=== PATIENT | female | born 1970 | race Caucasian/White ===

== ENCOUNTER 2021-11-26 15:06 | Outpatient (CLI) | payer OTHER, SELFPAY ==
--- NOTE | 2021-11-26 15:00 | CRLHL7_ITS ---
For Patients: As a result of the Century Cures Act, medical imaging exams and procedure reports are released immediately into your electronic medical record. You may view this report before your referring provider. If you have questions, please contact your health care provider. BILATERAL SCREENING MAMMOGRAM WITH COMPUTER-AIDED DETECTION AND TOMOSYNTHESIS TECHNIQUE: CC and MLO views were obtained. These mammographic images have been obtained using full-field digital technique. These mammographic images were interpreted with the benefit of computer-aided detection. Breast Tomosynthesis was used in this interpretation. COMPARISON FILM: 10/18/20, 07/17/19, 12/24/17. FINDINGS: The breasts are heterogeneously dense, which may obscure small masses IMPRESSION: There is no radiographic evidence for malignancy. ASSESSMENT: BI-RADS Category 2: Benign RECOMMENDATION: Routine screening mammogram in 1 year. A lay language report of this examination will be provided to the patient. Lang Olivo M.D. Diagnostic Radiologist [email or web address] MAURI/Dictated by: Lang Olivo MD @ 11/27/2021 10:08:00 AM (Electronically Signed)
== END 2021-11-26 15:07 | disposition home or self-care (01) ==
LOC: MAMMO 15:07
PROVIDERS: PCP Family Medicine; Visit Provider Family Medicine
DX: Z12.31 Encounter for screening mammogram for malignant neoplasm of breast (principal); R92.2 Inconclusive mammogram
CPT/HCPCS: 77063; 77067

== ENCOUNTER 2023-01-29 13:54 | Outpatient (CLI) | payer OTHER, SELFPAY ==
--- NOTE | 2023-01-29 14:00 | CRLHL7_ITS ---
For Patients: As a result of the Century Cures Act, medical imaging exams and procedure reports are released immediately into your electronic medical record. You may view this report before your referring provider. If you have questions, please contact your health care provider. BILATERAL SCREENING MAMMOGRAM WITH COMPUTER-AIDED DETECTION AND TOMOSYNTHESIS TECHNIQUE: CC and MLO views were obtained. These mammographic images have been obtained using full-field digital technique. These mammographic images were interpreted with the benefit of computer-aided detection. Breast Tomosynthesis was used in this interpretation. COMPARISON FILM: 11/26/21, 10/18/20, 07/17/19. FINDINGS: There are scattered areas of fibroglandular density IMPRESSION: There is no radiographic evidence for malignancy. ASSESSMENT: BI-RADS Category 1: Negative RECOMMENDATION: Routine screening mammogram in 1 year. A lay language report of this examination will be provided to the patient. Lang Olivo M.D. Diagnostic Radiologist [email or web address] MAURI/Dictated by: Lang Olivo MD @ 02/02/2023 9:19:00 AM (Electronically Signed)
== END 2023-01-29 13:55 | disposition home or self-care (01) ==
LOC: MAMMO 13:55
DX: Z12.31 Encounter for screening mammogram for malignant neoplasm of breast (principal)
CPT/HCPCS: 77063; 77067

== ENCOUNTER 2023-02-09 07:36 | Outpatient (CLI) | payer OTHER, SELFPAY | END 2023-02-09 07:37 | disposition home or self-care (01) | PROVIDERS: Visit Provider Family Medicine | DX: Z00.00 Encounter for general adult medical examination without abnormal findings (principal); I10 Essential (primary) hypertension; Z11.59 Encounter for screening for other viral diseases; Z13.6 Encounter for screening for cardiovascular disorders; Z13.1 Encounter for screening for diabetes mellitus; Z11.3 Encounter for screening for infections with a predominantly sexual mode of transmission | CPT/HCPCS: 80053; 80061; 82043; 82570; 84156; 86803 ==

== ENCOUNTER 2023-03-08 08:00 | Day surgery (SDC) | payer OTHER, SELFPAY ==
--- NOTE | 2023-03-08 07:19 | CRLHL7_ITS ---
For Patients: As a result of the Century Cures Act, medical imaging exams and procedure reports are released immediately into your electronic medical record. You may view this report before your referring provider. If you have questions, please contact your health care provider. Indication: Surgery / Rt thigh melanoma III Technique: Grayscale and color Doppler ultrasound of the right inguinal soft tissues performed. Comparison: 05/12/2021 Findings: Normal morphologic lymph nodes within the right inguinal soft tissues noted with normal central fatty cait. No cortical thickening. Largest lymph node measures 2.1 x 0.4 x 0.7 cm. No abnormal vascularity. Impression: Normal right inguinal lymph nodes. No suspicious findings. No significant change. Dictated by Lang Olivo MD @ 03/08/2023 8:42:03 AM (Electronically Signed)
--- OUTSIDE RECORDS SUMMARY | 2023-03-08 08:03 | XMS_ITS | Clinical Summary ---
Author Name Unknown Organization [facility] Address [address] [place] [address] Care Team Providers Care Industrial Safety And Health Specialist Name Role Phone Lang Mohamud MD Primary Care Provider [phone] Source Comments You are receiving this document as you are listed as the primary care provider,follow-up provider, or the patient has been referred to you for consultation.This is in compliance with the Medicare andOhio[facility] EHR Incentive Program,which states Providers who transition their patient to another setting of careor provider of care or refers their patient to another provider of care shouldprovide summary care record for each transition of care or referral. [facility] Allerg[facility] No known active allergies Medications Medication Sig Dispensed Refills Start Date End Date Status atenolol (TENORMIN) 50 MG tabletIndications:Ess ential hypertension (HRC) Take 1 Tablet (50 mg) by mouth daily. 90 Tablet 3 10/16/2021 Active aluminum chloride (DRYSOL) 20 % external solutionIndications:G eneralized hyperhidrosis APPLY TOPICALLY 3 TIMES A WEEK NEEDED. 60 mL 4 10/16/2021 Active rizatriptan (MAXALT) 10 MG tablet Take 1 Tablet (10 mg) by mouth as needed for Headache. at onset of migraine. May repeat in 2 hr if needed up to 30mg in 24 hr & MAX use 5 days/month 30 Tablet 6 10/17/2021 Active clobetasol (TEMOVATE) 0.05 % ointment Apply under bandage to irritated spot on neck 15 g 1 02/16/2023 Active Active Problems Problem Noted Date Diagnosed Date Adenomatous polyp of colon 11/23/2018 Overview: Colonoscopy completed 11/2018. Repeat in 5 years (11/2023). FH: abdominal aortic aneurysm 03/18/2018 Overview: Follow up with US. 2016 last check, q5 years. 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 Essential tremor 04/07/2010 Overview: Essential and other specified forms of tremor (HRC) Essential hypertension 07/15/2002 Overview: Hypertension Migraine 07/15/2002 Overview: Migraine Without Aura Resolved Problems Problem Noted Date Diagnosed Date Resolved Date Hypertrophy of breast 09/27/20062012 Overview: Macromastia Encounters Date Type Department Care Team Description 02/16/2023 1:30 PM DUPLEX TRIMMER Office Visit [facility] [address] [place] [address] Connie Mendez MD Skin exam, screening for cancer (Primary Dx); Sun-damaged skin; Personal history of malignant melanoma of skin; Family history of malignant melanoma; Solar lentigo; Julio angioma; Multiple melanocytic nevi; Seborrheic keratosis; Neoplasm of skin (HRC); 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 Orders Only HIM DEPARTMENT Provider, MD Velma from Last 3 Months Immunizations Name Administration Dates Next Due Flu Vac Preserv Free (3+yrs) 11/15/2019, 11/10/2017,11/13/2011, 011,10/31/2009,11/12/2008,12/24/2007,01/2007,11/29/2005 Flublok (RIV4) 11/09/2018 Fluzone Qiv Multidose Vial 0 .25 (6-35 Mos) 11/06/2020 H1n1 Miv Sanofi 3+ Yr (Injected) 12/10/2008 HepA Adult (19+ yrs) 07/06/2012,12/25/2011 Influenza (Fluzone ID) 11/25/2016 Influenza IIV4 (Quadrivalent ) 0.5mL (27492) 11/11/2015,01/12/2014,11/03/2012 Influenza LAIV (Nasal, 2-49 yrs) 11/14/2014 Pfizer Monovalent 12+ Purple Top 022,11/06/2020,02/20/2020, 020 TDAP (ADACEL) 11/19/2006 TDAP (BOOSTRIX) 11/13/2011 Family History Medical History Relation Name Comments High Blood Pressure Father High Cholesterol Father Other Father Depression Mother High Blood Pressure Mother High Blood Pressure Brother 1 High Blood Pressure Brother 2 High Blood Pressure Brother 3 Other Brother 3 Cancer, Breast Negative Family History Cancer, Colon Negative Family History Cancer, Endometrial Negative Family History Cancer, Ovary Negative Family History Relation Name Status Comments Father Alive Mother Alive Brother 1 Alive Brother 2 Alive Brother 3 Alive Daughter Alive Son Alive Social History Tobacco Use Types Packs/Day Years Used Date Smoking Tobacco: Never Smokeless Tobacco: Never Alcohol Use Standard Drinks/Week Comments No 0 (1 standard drink = 0.6 oz pur e alcohol) PHQ-2 Answer Date Recorded PHQ-2 Score 0 10/16/2021 Sex and Gender Information Value Date Recorded Sex Assigned at Not on file Gender Identity Not on file Sexual Orientation Not on file Last Filed Vital Signs Vital Sign Reading Time Taken Comments Blood Pressure 126/88 10/16/2021 1:19 PM CDT Pulse 49 10/16/2021 1:19 PM CDT Temperature 36.9 ??C (98.4 ??F) 09/15/2006 8:32 AM CD T C: 36.9 C Respiratory Rate 16 08/23/2020 1:47 PM CDT Oxygen Saturation 100% 11/17/2018 2:05 PM CDT Inhaled Oxygen Concentration - - Weight 74.4 kg (164 lb) 10/16/2021 1:19 PM CDT Height 172.7 cm (5' 8) 10/16/2021 1:19 PM CDT Body Mass Index 24.94 10/16/2021 1:19 PM CDT Plan of Treatment Upcoming Encounters Date Type Department Care Team Description 06/03/2023 10:00 AM CDT Appointment [facility] [address] [place] [address] [id number] Connie Mendez MD [address] [place] [address] 08/02/2023 2:30 PM CDT Appointment [facility] Surgery [address] [place] [address]. [place] [address] [place] [address] [place] [address] [phone] 02/22/2024 10:15 AM DUPLEX TRIMMER Appointment [facility] [address] [place], [place] [address] Connie Mendez MD [address] [place] [address] Health Maintenance Due Date Last Done Comments HepB (1) 1968 Cervical Cancer Screening 08/01/20182015, 01/30/2013, 04/07/2010, Additional history exists Zoster/Shingles (1 of 2) 2018 Adult Preventive Visit 08/23/2021 08/23/2020, 2018 COVID-19 Vaccine ( season) 2022 06/03/2021, 11/06/2020, 02/20/2020, Additional history exists Colonoscopy 11/18/2023 11/17/2018 Mammogram 01/30/2024 01/29/2023, 11/08, 10/18/2020 (Completed), Additional history exists Cholesterol 08/23/2025 08/23/2020, 09/2018, 08/02/2015, Additional history exists DTaP/Tdap/Td (4 - Tdap) 02/09/2033 02/09/19, 11/13/2011, 11/19/2006 HepA Completed 07/06/2012, 12/25/2011 HIV Screening (Preventive Services) Completed 08/02/2015, 07/09/2008, 10/29/2007, Additional history exists Hep C Screening (Preventive Services) Completed 08/02/2015, 10/29/2007 Influenza Completed 11/03/2022, 11/08, 11/06/2020, Additional history exists Hib Aged Out No longer eligi ble based on patient's age to complete this topic IPV (Polio) Aged Out No longer eligi ble based on patient's age to complete this topic MCV4 Aged Out No longer eligi ble based on patient's age to complete this topic Pneumococcal Aged Out No longer eligi ble based on patient's age to complete this topic Procedures Procedure Name Priority Date/Time Associated Diagnosis Comments EPIDERMAL / DERMAL SHAVING Routine 02/16/2023 2:04 PM DUPLEX TRIMMER Neoplasm of skin (HRC) EPIDERMAL / DERMAL SHAVING Routine 02/16/2023 2:04 PM DUPLEX TRIMMER Neoplasm of skin (HRC) EPIDERMAL / DERMAL SHAVING Routine 02/16/2023 1:58 PM DUPLEX TRIMMER Neoplasm of skin (HRC) EPIDERMAL / DERMAL SHAVING Routine 02/16/2023 1:58 PM DUPLEX TRIMMER Neoplasm of skin (HRC) SURGICAL PATHOLOGY, DERMATOLOGY Routine 02/16/2023 1:58 PM DUPLEX TRIMMER Neoplasm of skin (HRC) MAMMOGRAM SC 01/29/2023 from Last 3 Months Results * Shave removal (No CPT) (02/16/2023 2:04 PM DUPLEX TRIMMER) Only the most recent of4 resultswithin the time period is included. Narrative EXTERNAL RESULTS - 02/16/2023 2:04 PM DUPLEX TRIMMER Lesion diameter (cm): ??0.6 Informed consent: discussed and consent obtained ?? Timeout: patient name, date of , surgical site, and procedure verified ?? Procedure prep: ??Patient was prepped and draped in usual sterile fashion Prep type: ??Isopropyl alcohol Anesthesia: the lesion was anesthetized in a standard fashion ?? Anesthetic: ??1% lidocaine plain local infiltration Instrument used: flexible razor blade ?? Hemostasis achieved with: electrodesiccation ?? Outcome: patient tolerated procedure well ?? Post-procedure details: wound care instructions given ?? Connie Mendez MD DERM PROCEDURE ORDER MARIELA EXTERNAL RESULTS * Surgical Path, Dermatology (02/16/2023 1:58 PM DUPLEX TRIMMER) Case Report Surgical Pathology Report ? Case: [id number] ? Authorizing Provider: ??Connie Mendez MD ? Collected: ? 02/16/2023 1358 ? Ordering Location: ? [facility] ? Received: ?02/17/2023 [facility] ? Pathologist: ? Willie Flor MD ? Specimens: ?? A) - Skin, Left Breast ? B) - Skin, Right Shoulder - Posterior ? C) - Skin, Right Lower Leg - Posterior distal ? D) - Skin, Left Lower Leg - Posterior ? 02/26/2023 1:32 PM DUPLEX TRIMMER [facility] DERMATOLOGY FINAL DIAGNOSIS A. Skin, Left Breast, shave: - Pigmented junctional dysplastic nevus with moderate atypia, free of sampled margins. COMMENT (A): This nevus has architectural features associated with dysplastic nevi and moderate cytologic atypia. SOX-10 immunostain highlights mostly single cells along the junction; PRAME immunostain (preferentially -expressed antigen in melanoma) is negative on the neoplastic cells, with adequate control.The lesion is not present at any biopsy margin in these sections, but if pigment persists or recurs at this site, I advise prompt and complete removal. B. Skin, Right Shoulder - Posterior, shave: - Blue nevus, free of sampled biopsy margins, colliding with small junctional lentiginous nevus. COMMENT (B): The findings are benign and typical of blue nevus, including bland intradermal bipolar melanocytes with slender pigmented dendritic processes, as well as melanophages in sclerotic stroma. Melan-A/Ki-67 dual immunostain highlights the lesion and shows no proliferative activity in lesional melanocytes; it also demonstrates subtle junctional nests of bland melanocytes in a lentiginous configuration, without proliferative activity. PRAME is negative with adequate control. C. Skin, Right Lower Leg - Posterior distal, shave: - Inflamed pigmented severely atypical compound dysplastic nevus, free of sampled margins. COMMENT (C): This compound melanocyte proliferation has architectural features associated with dysplastic nevi and severe cytologic atypia. SOX-10 immunostain highlights confluent nested and single cells along and slightly above the junction, as well as focally in the superficial dermis. PRAME is negative with adequate control. The lesion is not present at any biopsy margin in these sections, but it should be EXCISED to ensure complete removal with a margin of uninvolved skin. D. Skin, Left Lower Leg - Posterior, shave: - Malignant melanoma with the following features: Breslow depth: 0.5 mm Raymundo level: IV Ulceration: Not identified Angiolymphatic/p erineural invasion: Not identified Mitotic rate: 0 per square mm Features of regression: Not identified Associated nevus: Not identified Margins: Free of melanoma AJCC stage: pT1a (8th ed AJCC Guidelines). COMMENT (D): The histologic ? type? of this lesion is superficial spreading for tumor registry purposes. No macroscopic satellite nodule or microscopic satellitosis is evident in this specimen. SOX-10 immunostain highlights the lesion; p16 is positive, but PRAME is also variably positive on the neoplastic cells. 02/26/2023 1:32 PM [facility] 3800 DERMATOLOGY NDUM If pigment at site B (right shoulder posterior) changes or recurs, I advise additional biopsy, to exclude significant pathology evolving in the residuum of the junctional lentiginous nevus.The blue nevus appears completely removed and adequately treated. 02/26/2023 1:32 PM [facility] 3800 DERMATOLOGY Addendum electronically signed by Willie Flor MD on 02/26/2023 at 1:32 PM Clinical Information A: Clinical Impression: Dn, R/O MM B: Clinical Impression: Dn, R/O MM C: Clinical Impression: DN, r/o MM D: Clinical Impression: DN, r/o MM 02/26/2023 1:32 PM [facility] 3800 DERMATOLOGY Microscopic Description Microscopic examination is performed. 02/26/2023 1:32 PM [facility] [address]00 DERMATOLOGY Special Stains The stain controls have been reviewed and stain appropriately. 02/26/2023 1:32 PM [facility] [address]00 DERMATOLOGY Technical Information A portion of the technical staining was performed at [facility], [address] [place] [id number]. 02/26/2023 1:32 PM [facility] [address]00 DERMATOLOGY Gross Description A: Received in formalin, labeled with the patient's name and Skin, Left Breast is a 7 x 6 x 1 mm shave biopsy of skin. The specimen is marked with green ink, bisected, and submitted entirely in one cassette. B: Received in formalin, labeled with the patient's name and Skin, Right Shoulder - Posterior is a 8 x 5 x 1 mm shave biopsy of skin. The specimen is marked with purple ink, bisected, and submitted entirely in one cassette. C: Received in formalin, labeled with the patient's name and Skin, Right Lower Leg - Posterior distal is a 8 x 8 x 1 mm shave biopsy of skin. The specimen is marked with blue ink, trisected, and submitted entirely in one cassette. D: Received in formalin, labeled with the patient's name and Skin, Left Lower Leg - Posterior is a 10 x 9 x 1 mm shave biopsy of skin. The specimen is marked with black ink, trisected, and submitted entirely in one cassette. TV 02/26/2023 1:32 PM DUPLEX TRIMMER [facility] [address]00 DERMATOLOGY Embedded Images 02/26/2023 1:32 PM DUPLEX TRIMMER [facility] DERMATOLOGY Skin (Skin) 02/16/2023 1:58 PM DUPLEX TRIMMER 02/17/2023 2:44 PM DUPLEX TRIMMER Comment:Clinical Impression: Dn, R/O MM Skin structure (body structure) (Skin) 02/16/2023 1:58 PM DUPLEX TRIMMER 02/17/2023 2:44 PM DUPLEX TRIMMER Comment:Clinical Impression: Dn, R/O MM Skin structure (body structure) (Skin) 02/16/2023 2:04 PM DUPLEX TRIMMER 02/17/2023 2:44 PM DUPLEX TRIMMER Comment:Clinical Impression: DN, r/o MM Skin structure (body structure) (Skin) 02/16/2023 2:04 PM DUPLEX TRIMMER 02/17/2023 2:44 PM DUPLEX TRIMMER Comment:Clinical Impression: DN, r/o MM Connie Mendez MD LAB PATHOLOGY Performing Organization Address City/State/[facility] Co mo Phone Number [facility] [address] [facility] [address] * MAMMOGRAM SC (01/29/2023) Anatomical Region Laterality Modality Other Interface Provider DUMMY/OTHER/AR from Last 3 Months Care Teams Industrial Safety And Health Specialist Relationship Specialty [place] [address] [place], [place] [phone] PCP - General Family Practice 08/21/20
--- OUTSIDE RECORDS SUMMARY | 2023-03-08 08:04 | XMS_ITS | Encounter Summary ---
Author Name Unknown Organization [facility] Address [address], [place] [address] Care Team Providers Care Glazing Machine Operator Name Role Phone Lang Mohamud MD Primary Care Provider [phone] Reason for Visit * Reason Comments Appt. Needed Encounter Details Date Type Department Care Team Description 06/11/2022 Telephone [place] [address] Family Medicine [address] [place] [phone] [place] [address] [place] [address] Appt. Needed Social History Tobacco Use Types Packs/Day Years Used Date Smoking Tobacco: Never Smokeless Tobacco: Never Alcohol Use Standard Drinks/Week Comments No 0 (1 standard drink = 0.6 oz pur e alcohol) PHQ-2 Answer Date Recorded PHQ-2 Score 0 10/16/2021 Sex and Gender Information Value Date Recorded Sex Assigned at Not on file Gender Identity Not on file Sexual Orientation Not on file documented as of this encounter Nursing Notes * Lia Baires RN - 06/11/2022 4:24 PM CDT Patient due for physical and pap, will schedule as soon as able to call back. documented in this encounter Plan of Treatment Upcoming Encounters Date Type Department Care Team Description 06/03/2023 10:00 AM CDT Appointment [facility] [address] [place] [address] [place] [address] Connie Mendez MD [address] [place] [address] 08/02/2023 2:30 PM CDT Appointment [facility]- Plastic Surgery [address] [place] [address]. [place] [address] Liz Serrato MD [address] [place] [phone] 02/22/2024 10:15 AM BUSINESS APPLICATIONS MANAGER Appointment [facility] [address] [place] [address] Connie Mendez MD [address] [place] [address] documented as of this encounter Visit Diagnoses Not on filedocumented in this encounter Care Teams Glazing Machine Operator Relationship Specialty [place] [address] [place] [address] PCP - General Family Practice 08/21/20 documented as of this encounter
--- OUTSIDE RECORDS SUMMARY | 2023-03-08 08:04 | XMS_ITS | Clinical Summary ---
Author Name Unknown Organization [facility] Address [place], [place] [address] Care Team Providers Care Lead Etl Developer Name Role Phone Lang Mohamud MD Primary Care Provider [phone] Allergies No known active allergies Medications Medication Sig Dispensed Refills Start Date End Date Status labetalol (TRANDATE) 200 mg tablet take 1 tablet (200 mg) by oral route 2 times per day 0 Active Jjaxxjgp-Jj-Inb-Fe-FA ( VITAMIN) Tab take 1 tablet by oral route once daily 0 Active ERGOCALCIFEROL (VITAMIN D ORAL) None Entered 0 Active CA CARBONATE/VITAMIN D3/VIT K (SOFT CHEWS CALCIUM ORAL) None Entered 0 Active acetaminophen (TYLENOL) 325 mg tablet Take 1-2 325mg tablets by mouth every 4 hours for mild pain as needed. 0 0 01/19/2009 Active ibuprofen (ADVIL; MOTRIN) 200 mg Cap Take 1-3 200mg tablets by mouth every 6 hours for uterine cramping as needed 0 0 01/19/2009 Active Qnwyidub-Dy-Vye-Fe-FA Tab Take 1 tablet by mouth each day 0 0 01/19/2009 Active Active Problems Problem Noted Date Diagnosed Date Advanced maternal age, antepartum condition or c omplication 01/17/2009 Chronic hypertension complic ating or reason for care during 01/17/2009 Chronic hypertension complic ating or reason for care during 01/16/2009 Advanced maternal age 1201/16/2009 Estimated Date of Delivery Comme nts Yes 02/05/2009 Encounters Date Type Department Care Team Description 02/09/2023 Lab Requisition [facility] [phone] Nanette Vargas MD from Last 3 Months Social History Tobacco Use Types Packs/Day Years Used Date Smoking Tobacco: Never Assessed Estimated Date of Delivery Comme nts Yes 02/05/2009 Sex and Gender Information Value Date Recorded Sex Assigned at Not on file Gender Identity Not on file Sexual Orientation Not on file Obstetrics History Para Term AB IAB SAB Ectopic Multiple Livin g Live Births 2 1 1 1 1 Date Outcome GA Total Labor Labor/2nd/3rd Weight Sex Delivery Anes PTL Lala A1 A5 Name Cl in 08/17 Term 39w 0d 2.92 kg (6 lb 7 oz) F Vag-Force ps Epidu ral N Effie ng Dr Wilhelm man Current Last Filed Vital Signs Vital Sign Reading Time Taken Comments Blood Pressure 129/84 01/19/2009 3:45 PM PMO BUSINESS ANALYST Pulse 67 01/19/2009 3:45 PM PMO BUSINESS ANALYST Temperature 36.7 ??C (98 ??F) 01/19/2009 3:45 PM PMO BUSINESS ANALYST Respiratory Rate 18 01/19/2009 3:45 PM PMO BUSINESS ANALYST Oxygen Saturation 94% 01/18/2009 2:50 PM PMO BUSINESS ANALYST Inhaled Oxygen Concentration - - Weight 84.8 kg (187 lb) 01/17/2009 10:15 PM PMO BUSINESS ANALYST Height 174 cm (5' 8.5) 01/17/2009 10:15 PM PMO BUSINESS ANALYST Body Mass Index 28.02 01/17/2009 10:15 PM PMO BUSINESS ANALYST Plan of Treatment Health Maintenance Due Date Last Done Comments Tdap 09/08/1979 Depression screening for age 12+ 1980 HIV for age 15-65 09/08/1983 BMI (ht and wt on same day) for age 18+ 1986 Hepatitis C screening for ag e 18-79 1986 Tetanus booster 1988 Colonoscopy through age 75 2013 Lipids for age 45-75 2013 Zoster (shingles) series for age 50+ (1 of 2) 2018 Mammogram for age 45-75 10/18/2021 10/19/19 21, 07/17/2019 COVID-19 vaccine series (2022- season) 2022 06/03/2021, 11/06/2020 Influenza for age 50-64 10/09/2022 Pap test for age 21-65 02/09/2026 , 02/09/2023 Pneumococcal series for age 6-64 Aged Out No longer eligible b ased on patient's age to complete this topic Procedures Procedure Name Priority Date/Time Associated Diagnosis Comments LAB TRACKING EVENT Routine 02/09/2023 7: 51 AM PMO BUSINESS ANALYST ORDER BUILDER LOADER THIN PREP PAP SCREEN IMAGED Routine 02/09/2023 7:51 AM PMO BUSINESS ANALYST HPV THIN PREP Routine 02/09/2023 7:51 AM PMO BUSINESS ANALYST from Last 3 Months Results * LAB TRACKING EVENT (02/09/2023 7:51 AM PMO BUSINESS ANALYST) Other (Other) Client Collect / Unknown 02/09/2023 7:51 AM PMO BUSINESS ANALYST 02/09/2023 4:09 PM PMO BUSINESS ANALYST Nanette Vargas MD LAB BILL ONLY [facility] [address] [place] [address], * ORDER BUILDER LOADER THIN PREP PAP SCREEN IMAGED (02/09/2023 7:51 AM PMO BUSINESS ANALYST) Case Report Gynecologic Cytology Report ? Case: [id number] ? Authorizing Provider: ??Nanette Vargas MD ?? Collected: ? 02/09/2023 0751 ? Ordering Location: ? [facility] ?Received: ?02/10/2023 0955 ? First Screen: ?Mauricio Blank ? Rescreen: ?Lexy Mcduffie ? Specimen: ?ORDER BUILDER LOADER ThinPrep Vial Screening, Cervical ? 02/16/2023 9:16 AM [facility] INTERPRETATION/ RESULT NEGATIVE FOR INTRAEPITHELIAL LESION OR MALIGNANCY (NIL) (none) 02/16/2023 9:16 AM [facility] IMEN ADEQUACY Satisfactory for evaluation Endocervical component present Scant cellularity 02/16/2023 9:16 AM [facility] HPV REQUEST HPV and PAP 02/16/2023 9:16 AM [facility] Last Pap Date 08/02/2015 02/16/2023 9:16 AM [facility] Abnormal Pap or [place] Bx in last 5 years No 02/16/2023 9:16 AM [facility] [place] Bx Done Today No 02/16/2023 9:16 AM [facility] Additional Information 02/16/2023 9:16 AM [facility] Comment: Interpreted at [facility] Laboratory - [address], [place] [address] Automated Review Successful 02/16/2023 9:16 AM [facility] Comment:Specimen processed s uccessfully by automated recreation leader device, ThinPrep Imaging System, [employer] ANCILLARY TESTING ORDER BUILDER LOADER HPV Ordered, Please see separate report 02/16/2023 9:16 AM [facility] Note The pap test is a screening technique, not a diagnostic procedure. It is used primarily to screen for squamous cancers and precursor lesions. Published studies have shown that it is subject to both false negative and false positive results. The pap test should not be used as the sole means to diagnose or exclude pre-malignant and malignant lesions. 02/16/2023 9:16 AM PMO BUSINESS ANALYST [facility] Other (Cervical) 02/09/2023 7:51 AM PMO BUSINESS ANALYST 02/10/2023 9:55 AM PMO BUSINESS ANALYST Nanette Vargas MD PATHOLOGY/CYTOLOG Y Performing Organization Address [facility] Co de Phone Number [facility] [address] [place] [address], * HPV HIGH RISK (02/09/2023 7:51 AM PMO BUSINESS ANALYST) TYPE 16 Negative Negative 02/11/2023 2:27 PM PMO BUSINESS ANALYST [facility] TYPE 18 Negative Negative 02/11/2023 2:27 PM PMO BUSINESS ANALYST [facility] OTHER HIGH RISK TYPES Negative Negative 02/11/2023 2:27 PM PMO BUSINESS ANALYST [facility] Other (Cervical) 02/09/2023 7:51 AM PMO BUSINESS ANALYST 02/10/2023 9:55 AM PMO BUSINESS ANALYST Narrative [facility] - 02/11/2023 2:27 PM PMO BUSINESS ANALYST HPV types 16, 18, 31, 33, 35, 39, 45, 51, 52, 56, 58, 59, 66 and 68 DNA were undetectable or below the pre-set threshold. Methodology: Mely Yvette 4800 HPV Test Nanette Vargas MD MICROBIOLOGY Performing Organization Address [facility] Co de Phone Number [facility] [address] [place] [address], from Last 3 Months Advance Directives Latest Code Status on File Code Status Date Activated Date Inactivated Comments Full Code 01/18/2009 4:09 PM 01/19/2009 7:01 PM Code Status History Code Status Date Activated Date Inactivated Comments Full Code 01/18/2009 7:49 AM 01/18/2009 4:09 PM Full Code 01/17/2009 10:11 PM 01/18/2009 7:49 AM Care Teams Lead Etl Developer Relationship Specialty [place] [address] [place] [address] PCP - General Family Practice 10/23/20
--- OUTSIDE RECORDS SUMMARY | 2023-03-08 08:04 | XMS_ITS | Encounter Summary ---
Author Name Unknown Organization [facility] Address [address] [address] Care Team Providers Care Salmon Troll Fisher Name Role Phone OneidaLang MD Primary Care Provider [phone] Encounter Details Date Type Department Care Team Description 01/29/2023 Orders Only [facility] DEPARTMENT Provider, [place] [address] Social History Tobacco Use Types Packs/Day Years [...] on file documented as of this encounter Plan of Treatment Upcoming Encounters Date Type Department Care Team Description 06/03/2023 10:00 AM CDT Appointment [facility] [address] [place], [place] [id number] Connie Mendez MD [address] [place], [place] [id number] 08/02/2023 2:30 PM CDT Appointment [facility] [address] 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 Appointment [facility] [address] [place] [address] Connie Mendez MD [address] [place], [place] [phone] documented as of this encounter Procedures Procedure Name Priority Date/Time Associated Diagnosis Comments MAMMOGRAM SC 01/29/2023 documented in this encounter Results * MAMMOGRAM SC (01/29/2023) Anatomical Region Laterality Modality Other Interface Provider MD DUMMY/OTHER/AR documented in this encounter Visit Diagnoses Not on filedocumented in this encounter Care Teams Salmon Troll Fisher Relationship Specialty [place] [address] [place] [address] PCP - General Family Practice 08/21/20 documented as of this encounter
--- OUTSIDE RECORDS SUMMARY | 2023-03-08 08:04 | XMS_ITS | Encounter Summary ---
Author Name Unknown Organization [facility] Address [address], [place] [address] Care Team Providers Care Iap Displays Analyst Name Role Phone Lang Mohamud MD Primary Care Provider [phone] Reason for Referral * Consult/Transfer Care (Routine) - New Request Specialty Diagnoses / Procedures Referred By Elsa miguel Referred To Contact Diagnoses Multiple melanocytic nevi Connie Mendez MD [address] [place] [address] Referral ID Status Reason Start Date Expiration Date V isits Requested Visits Authorized [id number] New Request 02/16/2023 05/17/2024 1 1 Scheduling Instructions Your provider has recommended an appointment with [facility]. You may call [phone] for help scheduling your appointment. We suggest you call your health insurance company about your coverage and benefits for this appointment. Question Answer Appointment Urgency? Non-Urgent Reason for visit? longstanding irritated Mole on the left chin pt would like removed F ATTORNEY Reason for Visit * Reason Comments Skin Exam Full Body Skin Cance r Screening Concerns: Mole on face that has been more raised and bleeds left chin, back of neck has raised area that was biopsied a year ago, negative but is irritable, painful at times, and doesn't seem to go away. Phx:MM, brother had MM * Consult/Transfer Care (Urgent) - New Request Specialty Diagnoses / Procedures Referred By Contac t Referred To Contact Dermatology Diagnoses Secondary and unspecified malignant neoplasm of lymph node, unspecified (HRC) Disorder of the skin and subcutaneous tissue, unspecified Nanette Vargas MD [facility] Dermatology [address] [place] [address] Referral ID Status Reason Start Date Expiration Date V isits Requested Visits Authorized [id number] New Request 02/10/2023 05/11/2024 1 1 Encounter Details Date Type Department Care Team Description 02/16/2023 1:30 PM STAFF ATTORNEY Office Visit [facility] [address] [place], [place] [phone] Connie Mendez MD [facility] [place], [place] [phone] Skin exam, screening for cancer (Primary Dx); Sun-damaged skin; Personal history of malignant melanoma of skin; Family history of malignant melanoma; Solar lentigo; Julio angioma; Multiple melanocytic nevi; Seborrheic keratosis; Neoplasm of skin (HRC); Prurigo nodularis Social History Tobacco Use Types Packs/Day Years [...] on file documented as of this encounter Patient Instructions * Patient Instructions* Steph Nunez, CAROLYNN - 02/16/2023 1:30 PM STAFF ATTORNEY Images from the original note were not included. Plastics [phone] ABCDE of Self Skin Cancer Screening: You may not be able to reverse sun damage however self monitoring is MICHELE to staying healthy. Monthly at home skin checks monitoring for any changes and staying up to date with what your trim die maker recommends for in-office screening are two of the BEST things you can do! Taking a photograph of moles and comparing the photograph to your skin once a month can be helpful in detecting changes especially for those hard to reach places like your back. Other tips include: Mirrors, another person, monthly checklist. If anything is bleeding, tender, or nonhealing, or meets one of the below criteria and has not previously been examined, please contact your trim die maker via [employer]. YOU are the BEST advocate for your skin! Care Instructions after a shave skin biopsy/removal When do I start changing the bandage on my wound site? Leave the original bandage/dressing in place for 24 to 48 hours. If you develop bleeding from the site, apply firm pressure directly over the bandage, using the heel of your hand, for [address] bandage on top of the first one - don't keep removing and replacing dressings. NO PEEKING! Notify us if the bleeding still does not stop. How do I change the bandage on my wound? Clean the area once a day with warm soap and water. Gently pat dry the area. After the area has been cleaned and is dry, apply a small amount of petroleum jelly or Aquaphor healing ointment and apply a new bandage. We prefer that you do not use an antibacterial ointment (i.e. bacitracin, Neosporin) as many peopledevelop a hypersensitivity including a rash and even blistering related to these. Is it okay to shower after having a skin biopsy/removal? Showering is okay, but please do not soak in a bathtub, hot tub, or pool. This will slow the healing process and may create infection. When can I stop bandaging my wound? Continue the wound care process until the area is healed. Complete healing usually takes 2-4 weeks.Wounds heal best when kept moist, try not to let the area dry out. During this process you may see a white film develop over your wound and this is part of the normal healing process. Letting them open to air, drying out, and having a scab form actually causes wounds to take longer to heal. If yourskin is getting sensitive to the bandage, use gauze and paper tape. Can I exercise after having a skin biopsy/removal? Avoid exercising for 2 days. What signs or symptoms should I call the dermatology department about? Infection after a biopsy is not likely, but can occur. Mild amounts of redness, bruising, swelling,discomfort and a clear to yellowish to blood-tinged discharge are normal. Signs of Infection include: fever, increasing pain, blood blister, drainage of pus, and extreme heat from the site. Please call the clinic if you experience any of these symptoms. When will I receive my skin biopsy/removal results? Your skin biopsy specimen will be sent to our laboratory for processing. Your clinician will contact you with the results of this pathology report when it is available. Typically you will be contacted 7 to 14 days after your biopsy or procedure. Our pathology services will be listed separately on your bill. If you have further questions about the biopsy process or if you have not received your biopsy results within 2 weeks, please call the clinic. F ATTORNEY documented in this encounter Progress Notes * Connie Mendez MD - 02/16/2023 1:30 PM CST Images from the original note were not included. 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 Phx:MM, brother had MM History of Present Illness: Ashlyn Wu is a 52 y.o. female who presents for a full body skin exam today. She was last seen in Our dermatology department in [address] Vinson. 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 Reports that she was diagnosed with melanoma on her right thigh in 2020. Per review of her notes that are scanned endorse system type of MsEdwin Melanoma with spitzoid with a Breslow depth of 1.4 mm which was positive on deep margin. She did have a sentinel lymph node biopsy which was positive in September of 2020. Reports that she had surgery in the lymph node basin and had regular ultrasound monitoring every three months for one year. Did meet with an oncologist, thinks that this was a Dr. Pepe Epperson and elected not to go forward with immunotherapy. Those records are not available. Today, notes two main concerns as below: There is a mole on the left side of her chin that has been present for as long as she can remember.It has become more raised and she does frequently pick at it. She is interested in definitive removal. She also notes an itchy spot on her posterior neck. Reports that this was previously biopsied and found to be benign. She has tried 1% hydrocortisone but did not find this to be particularly helpful. Past Medical History, Family History: Reviewed and updated in [facility] Social History: Lives in [place], two teenage children, one age 18. Medications: The patient has a current medication list which includes the following prescription(s): drysol, atenolol, and rizatriptan. Allergies: The patient has No Known Allergies. Review of Systems: Generally feels well without other skin concerns today. Physical Examination: General: Well-appearing female, in no distress, alert and oriented. Skin: Full body skin exam performed including the scalp, face, ears, eyelids, neck, abdomen, chest,back, buttocks, bilateral upper and lower extremities. Did examine genitals. Pertinent findings as below. Derm Exam, Assessment and Plan: 1. Skin exam, screening for cancer 2. Sun-damaged skin - Reviewed risk factors for melanoma and nonmelanoma skin cancers - ABCDEs reviewed in clinic and in AVS or bookmark handout - Recommended SPF 30+ sunscreen every day and sun protective clothing 3. Personal history of malignant melanoma of skin Well healed scar/scars without recurrence. No lymphadenopathy of the cervical, axillary or inguinalchains. Reassured, no evidence of recurrence. Obtain records from oncologist, trim die maker 4. Family history of malignant melanoma Brother 5. Solar lentigo Hendrickson macules in sun-exposed areas. No clinical outliers noted Reassurance provided 6. Julio angioma - bright red 1-3 mm dome-shaped papules with red lobules under dermoscopy present on trunk Benign, reassured. 7. Multiple melanocytic nevi - Scattered 3-5 mm uniformly colored, bland, symmetrical brown macules and papules on trunk, arms, and legs - on the left chin there is a skin colored to slightly light brown 7-8 mm dome- shaped papule, one pinpoint erosion at the inferior aspect Benign, reassured. Given benign appearance, reassurance regarding intradermal nevus on the left chin provided. This patient is interested in removal, discussed options today including shave removal versus referral to Plastic surgery for more definitive removal. Patient would prefer referral to Plastic surgery. Consult placed. Related Procedures Plastic Surgery Consult-Adult/Peds 8. Seborrheic keratosis Scattered hendrickson to brown, stuck-on, waxy papules noted to the anterior/posterior torso, arms, legs Benign, reassured. 9. Neoplasm of skin (HRC) (4) Left Breast 4 x 3 mm brown papule with irregular borders Shave removal (No CPT) Lesion diameter (cm): 0.4 Informed consent: discussed and consent obtained Timeout: patient name, date of , surgical site, and procedure verified Procedure prep: Patient was prepped and draped in usual sterile fashion Prep type: Isopropyl alcohol Anesthesia: the lesion was anesthetized in a standard fashion Anesthetic: 1% lidocaine plain local infiltration Instrument used: flexible razor blade Hemostasis achieved with: electrodesiccation Outcome: patient tolerated procedure well Post-procedure details: wound care instructions given Specimen 1 - Surgical Path, Dermatology Clinical Impression: Dn, R/O MM Right Shoulder - Posterior 3 x 2.5 mm white medium brown papule Shave removal (No CPT) Lesion diameter (cm): 0.3 Informed consent: discussed and consent obtained Timeout: patient name, date of , surgical site, and procedure verified Procedure prep: Patient was prepped and draped in usual sterile fashion Prep type: Isopropyl alcohol Anesthesia: the lesion was anesthetized in a standard fashion Anesthetic: 1% lidocaine plain local infiltration Instrument used: flexible razor blade Hemostasis achieved with: electrodesiccation Outcome: patient tolerated procedure well Post-procedure details: wound care instructions given Specimen 2 - Surgical Path, Dermatology Clinical Impression: Dn, R/O MM Right Lower Leg - Posterior distal 4 x 3 mm smudgy dark brown papule Shave removal (No CPT) Lesion diameter (cm): 0.4 Informed consent: discussed and consent obtained Timeout: patient name, date of , surgical site, and procedure verified Procedure prep: Patient was prepped and draped in usual sterile fashion Prep type: Isopropyl alcohol Anesthesia: the lesion was anesthetized in a standard fashion Anesthetic: 1% lidocaine plain local infiltration Instrument used: flexible razor blade Hemostasis achieved with: electrodesiccation Outcome: patient tolerated procedure well Post-procedure details: wound care instructions given Specimen 3 - Surgical Path, Dermatology Clinical Impression: DN, r/o MM Left Lower Leg - Posterior 6 x 4 mm Red brown asymmetric thin papule Shave removal (No CPT) Lesion diameter (cm): 0.6 Informed consent: discussed and consent obtained Timeout: patient name, date of , surgical site, and procedure verified Procedure prep: Patient was prepped and draped in usual sterile fashion Prep type: Isopropyl alcohol Anesthesia: the lesion was anesthetized in a standard fashion Anesthetic: 1% lidocaine plain local infiltration Instrument used: flexible razor blade Hemostasis achieved with: electrodesiccation Outcome: patient tolerated procedure well Post-procedure details: wound care instructions given Specimen 4 - Surgical Path, Dermatology Clinical Impression: DN, r/o MM 10. Prurigo nodularis Neck - Posterior Poorly demarcated pink to hyperpigmented lichenified 1 cm plaque PROCEDURE NOTE: After verbal consent, a total of 0.5 cc intralesional triamcinolone acetonide 10 mg/mL was injectedinto a total of 1 sites. Patient tolerated well. I also prescribed clobetasol 0.05% ointment to be used twice daily to affected area if the intralesional Kenalog is not sufficient. Follow up: Return to clinic pending biopsy results, sooner for new concerns. Connie Mendez MD [facility] F ATTORNEY documented in this encounter Plan of Treatment Upcoming Encounters Date Type Department Care Team Description 06/03/2023 10:00 AM CDT Appointment [facility] [address] [place] [phone] Connie Mendez MD [address] [place], [place] [phone] 08/02/2023 2:30 PM CDT Appointment [facility]- Plastic Surgery [address] [place] [address]. [place], [place] [address] [place] [address] [place] [address] [phone] 02/22/2024 10:15 AM STAFF ATTORNEY Appointment [facility] [address] [place] [address] Connie Mendez MD [address] [place], [place] [address] Scheduled Referrals Name Type Priority Associated Diagnoses Orde r Schedule Plastic Surgery Consult-Adult/Peds Referral Routine Multiple melanocytic nevi Ordered: 02/16/2023 documented as of this encounter Procedures Procedure Name Priority Date/Time Associated Diagnosis Comments EPIDERMAL / DERMAL SHAVING Routine 02/16/2023 2:04 PM STAFF ATTORNEY Neoplasm of skin (HRC) EPIDERMAL / DERMAL SHAVING Routine 02/16/2023 2:04 PM STAFF ATTORNEY Neoplasm of skin (HRC) EPIDERMAL / DERMAL SHAVING Routine 02/16/2023 1:58 PM STAFF ATTORNEY Neoplasm of skin (HRC) EPIDERMAL / DERMAL SHAVING Routine 02/16/2023 1:58 PM STAFF ATTORNEY Neoplasm of skin (HRC) SURGICAL PATHOLOGY, DERMATOLOGY Routine 02/16/2023 1:58 PM STAFF ATTORNEY Neoplasm of skin (HRC) documented in this encounter Results * Shave removal (No CPT) (02/16/2023 2:04 PM STAFF ATTORNEY) Narrative EXTERNAL RESULTS - 02/16/2023 2:04 PM STAFF ATTORNEY Lesion diameter (cm): ??0.6 Informed consent: discussed [...] Connie Mendez MD DERM PROCEDURE ORDER MARIELA Performing Organization Address [facility] de Phone Number EXTERNAL RESULTS * Shave removal (No CPT) (02/16/2023 2:04 PM STAFF ATTORNEY) Narrative EXTERNAL RESULTS - 02/16/2023 2:04 PM STAFF ATTORNEY Lesion diameter (cm): ??0.4 Informed consent: discussed and consent obtained ?? [...] Connie Mendez MD DERM PROCEDURE ORDER MARIELA Performing Organization Address [facility] de Phone Number EXTERNAL RESULTS * Shave removal (No CPT) (02/16/2023 1:58 PM STAFF ATTORNEY) Narrative EXTERNAL RESULTS - 02/16/2023 1:58 PM STAFF ATTORNEY Lesion diameter (cm): ??0.3 Informed consent: discussed and consent obtained ?? [...] Connie Mendez MD DERM PROCEDURE ORDER MARIELA Performing Organization Address [facility] Co de Phone Number EXTERNAL RESULTS * Shave removal (No CPT) (02/16/2023 1:58 PM STAFF ATTORNEY) Narrative EXTERNAL RESULTS - 02/16/2023 1:58 PM STAFF ATTORNEY Lesion diameter (cm): ??0.4 Informed consent: discussed and consent obtained ?? [...] Connie Mendez MD DERM PROCEDURE ORDER MARIELA Performing Organization Address [facility] Co de Phone Number EXTERNAL RESULTS * Surgical Path, Dermatology (02/16/2023 1:58 PM STAFF ATTORNEY) Case Report Surgical Pathology Report ? Case: [id number] ? Authorizing Provider: ??Connie Mendez MD ? Collected: ? 02/16/2023 1358 ? Ordering Location: ? [facility] ? Received: ?02/17/2023 1444 ? Pathologist: ? Willie Flor MD ? Specimens: ?? A) - Skin, Left Breast ? B) - Skin, Right Shoulder - Posterior ? C) - Skin, Right Lower Leg - Posterior distal ? D) - Skin, Left Lower Leg - Posterior ? 02/26/2023 1:32 PM STAFF ATTORNEY [facility] [address]00 DERMATOLOGY FINAL DIAGNOSIS A. Skin, Left [...] on the neoplastic cells. 02/26/2023 1:32 PM STAFF ATTORNEY [facility] [address] DERMATOLOGY NDUM If pigment at site B (right shoulder posterior) changes or recurs, I advise additional biopsy, to exclude significant pathology evolving in the residuum of the junctional lentiginous nevus.The blue nevus appears completely removed and adequately treated. 02/26/2023 1:32 PM STAFF ATTORNEY [facility] [address] DERMATOLOGY Addendum electronically signed by Willie Flor MD on 02/26/2023 at 1:32 PM Clinical Information A: Clinical Impression: Dn, R/O MM B: Clinical Impression: Dn, R/O MM C: Clinical Impression: DN, r/o MM D: Clinical Impression: DN, r/o MM 02/26/2023 1:32 PM STAFF ATTORNEY [facility] [address] DERMATOLOGY Microscopic Description Microscopic examination is performed. 02/26/2023 1:32 PM STAFF ATTORNEY [facility] [address] DERMATOLOGY Special Stains The stain controls have been reviewed and stain appropriately. 02/26/2023 1:32 PM [facility] 3800 DERMATOLOGY Technical Information A portion of the technical staining was performed at [facility], [address] [place] [id number]. 02/26/2023 1:32 PM [facility] [address] DERMATOLOGY Gross Description A: Received in [...] in one cassette. TV 02/26/2023 1:32 PM [facility] 3800 DERMATOLOGY Embedded Images 02/26/2023 1:32 PM [facility] 38[address] DERMATOLOGY Skin (Skin) 02/16/2023 1:58 PM STAFF ATTORNEY 02/17/2023 2:44 PM STAFF ATTORNEY Comment:Clinical Impression: Dn, R/O MM Skin structure (body structure) (Skin) 02/16/2023 1:58 PM STAFF ATTORNEY 02/17/2023 2:44 PM STAFF ATTORNEY Comment:Clinical Impression: Dn, R/O MM Skin structure (body structure) (Skin) 02/16/2023 2:04 PM STAFF ATTORNEY 02/17/2023 2:44 PM STAFF ATTORNEY Comment:Clinical Impression: DN, r/o MM Skin structure (body structure) (Skin) 02/16/2023 2:04 PM STAFF ATTORNEY 02/17/2023 2:44 PM STAFF ATTORNEY Comment:Clinical Impression: DN, r/o MM Connie Mendez MD LAB PATHOLOGY [facility] [address] DERMATOLOGY [address] [place] [address], [facility] documented in this encounter Visit Diagnoses Diagnosis Skin exam, screening for cancer- Primary Screening for malignant neoplasm of the skin Sun-damaged skin Other chronic dermatitis due to solar radiation Personal history of malignant melanoma of skin Family history of malignant melanoma Family history of other specified malignant neoplasm Solar lentigo Other dyschromia Julio angioma Nevus, non-neoplastic Multiple melanocytic nevi Seborrheic keratosis Other seborrheic keratosis Neoplasm of skin (HRC) Neoplasm of unspecified nature of bone, soft tissue, and skin Prurigo nodularis Lichenification and lichen simplex chronicus documented in this encounter Care Teams Iap Displays Analyst Relationship Specialty [place] [address] [place] [address] PCP - General Family Practice 08/21/20 documented as of this encounter
--- OUTSIDE RECORDS SUMMARY | 2023-03-08 08:04 | XMS_ITS | Encounter Summary ---
Author Name Unknown [facility] Address [address], [place] [address] Care Team Providers Care Digital Content Specialist Name Role Phone Lang Mohamud MD Primary Care Provider [phone] Reason for Visit * Reason Comments Prior Authorization For Medication Dryso l 20% Solution Encounter Details Date Type Department Care Team Description 10/15/2022 [place] [address] Family Medicine [address] [place] [phone] [place] [address] [place], [place] [phone] Prior Authorization For Medication (Drysol 20% Solution) Social History Tobacco Use Types Packs/Day Years [...] as of this encounter Nursing Notes * Leticia Mckeon - 10/15/2022 10:54 AM CDT Epa intiated documented in this encounter Plan of Treatment Upcoming Encounters Date Type Department Care Team Description 06/03/2023 10:00 AM CDT Appointment [facility] [address] [place] [address] Connie Mendez MD [address] [place] [address] 08/02/2023 2:30 PM CDT Appointment - Plastic Surgery [address] [place] [address] Liz Serrato MD [address] [place] [phone] 02/22/2024 10:15 AM TECHNICAL PROPOSAL WRITER Appointment [facility] [address] [place] [address] Connie Mendez MD [address] [place] [address] documented as of this encounter Visit Diagnoses Not on filedocumented in this encounter Care Teams Digital Content Specialist Relationship Specialty Start [place] [address] [place] [address] PCP - General Family Practice 08/21/20 documented as of this encounter
--- OUTSIDE RECORDS SUMMARY | 2023-03-08 08:04 | XMS_ITS | Encounter Summary ---
Author Name Unknown Organization [facility] Address [address], [place] [address] Care Team Providers Care Engineering Manager Electronics Name Role Phone Lang Mohamud MD Primary Care Provider [phone] Reason for Referral * Medication Prior Authorization - Authorized Specialty Diagnoses / Procedures Referred By Elsa miguel Referred To Contact Diagnoses [place] [address] [place] [address] Referral ID Status Reason Start Date Expiration Date V isits Requested Visits Authorized [id number] Authorized 04/20/2022 02/07/2023 1 1 Reason for Visit * Reason Comments MEDICATION CHECK Refill meds and chec k spot on back of neck Encounter Details Date Type Department Care Team Description 10/16/2021 1:30 PM CDT Office Visit [place] [address] [facility] [address] [place] [phone] [place] [address] [place], [place] [phone] Essential hypertension (Primary Dx); Generalized hyperhidrosis; Headache, unspecified headache type; Essential tremor; Diabetes mellitus screening Social History Tobacco Use Types Packs/Day Years [...] on file documented as of this encounter Last Filed Vital Signs Vital Sign Reading Time Taken Comments Blood Pressure 126/88 10/16/2021 1:19 PM CDT Pulse 49 10/16/2021 1:19 PM CDT Temperature - - Respiratory Rate - - Oxygen Saturation - - Inhaled Oxygen Concentration - - Weight 74.4 kg (164 lb) 10/16/2021 1:19 PM CDT Height 172.7 cm (5' 8) 10/16/2021 1:19 PM CDT Body Mass Index 24.94 10/16/2021 1:19 PM CDT documented in this encounter Progress Notes * Lang Mohamud MD - 10/16/2021 1:30 PM CDT Subjective Ashlyn Wu is a 51 y.o. female who presents Chief Complaint Patient presents with MEDICATION CHECK Refill meds and check spot on back of neck . Here for medication check BP control is good - no problems with side effects. Tremor well controlled as well. She continues to use maxalt at times, but less lately. No problems with CP or SOB. She continues to stay active. She does have a scar that is a little bothersome on the back of her neck at the site of a previous biopsy. Biopsy results were normal, but there is some irritation at the site. Outpatient Medications Prior to Visit Medication Sig [DISCONTINUED] aluminum chloride (DRYSOL) 20 % external solution APPLY TOPICALLY 3 TIMES A WEEK NEEDED. [DISCONTINUED] atenolol (TENORMIN) 50 MG tablet Take 1 Tablet (50 mg) by mouth daily. [DISCONTINUED] rizatriptan (MAXALT) 10 MG tablet at onset of migraine. May repeat in 2 hr if neededup to 30mg in 24 hr & MAX use 5 days/month No facility-administered medications prior to visit. Past Medical History: Diagnosis Date Hypertension (HRC) Migraine Review of Systems Pertinent items are noted in HPI. Objective BP 126/88 (BP Location: Left Arm, BP Cuff Size: Large) Pulse (!) 49 Ht 5' 8 (1.727 m) Wt 164lb (74.4 kg) BMI 24.94 kg/m?? Alert, NAD ENT: Throat clear, TM clear bilaterally. CV: RRR Lungs; Clear Skin; healing shave site noted with some scarring. No sign of infection or residual mole. Ext; No edema, well perfused. Assessment/Plan ICD-10-CM 1. Essential hypertension (HRC) I10 atenolol (TENORMIN) 50 MG tablet CANCELED: Creatinine / GFR 2. Generalized hyperhidrosis R61 aluminum chloride (DRYSOL) 20 % external solution 3. Headache, unspecified headache type R51.9 rizatriptan (MAXALT) 10 MG tablet 4. Essential tremor (HRC) G25.0 5. Diabetes mellitus screening Z13.1 CANCELED: Hgb A1C Will continue with current medications - labs are UTD. Will follow up in 1 year. Pap does look due,so she should plan for visit to update that as well. Scarring looks to be healing ok - discussed that remodeling can take months and it should continue to acid changer time. Discussed signs/symptoms that warrant urgent RTC or ED. Follow up PRN. Lang Mohamud MD 8:38 AM 10/17/2021 documented in this encounter Nursing Notes * Rachel Gutierres CMA - 10/16/2021 1:30 PM CDT ePA not supported by [employer]. PA request for aluminum chloride (DRYSOL) 20 % external solutionwas submitted via insurance's online portal. Determination letter will be sent to ePA team and clinic will be notified via telephone encounter or PA encounter of insurance's outcome. Tracking ID# [id number] * Rachel Gutierres CMA - 10/16/2021 1:30 PM CDT The prior authorization for aluminum chloride (DRYSOL) 20 % external solution has been approved. Please contact the pharmacy and ask them to notify the patient when prescription is ready for bean picker. Authorized from April 20, 2022 to February 07, 2023 Document using the ePA QuickAction PA Approved. Click Sign and Complete. * Leticia Mckeon - 10/16/2021 1:30 PM CDT The prior authorization for Drysol has been approved and has been sent to the pharmacy. Pharmacy has been notified.. Leticia Mckeon documented in this encounter Plan of Treatment Upcoming Encounters Date Type Department Care Team Description 06/03/2023 10:00 AM CDT Appointment [facility] [address] [place] [address] Connie Mendez MD [address] [place] [id number] 08/02/2023 2:30 PM CDT Appointment - Plastic Surgery [address] [place] [address]. [place] [address] [place] [address] [place] [phone] 02/22/2024 10:15 AM OCCUPATIONAL HEALTH SPECIALIST Appointment [facility] [address] [place] [address] Connie Mendez MD [address] [place] [id number] documented as of this encounter Visit Diagnoses Diagnosis Essential hypertension (HRC)- Primary Unspecified essential hypertension Generalized hyperhidrosis Headache, unspecified headache type Essential tremor (HRC) Essential and other specified forms of tremor Diabetes mellitus screening Screening for diabetes mellitus documented in this encounter Care Teams Engineering Manager Electronics Relationship Specialty [place] [address] [place] [address] PCP - General Family Practice 08/21/20 documented as of this encounter
[2023-03-08 08:11] VITALS: BMI 24.5
[2023-03-08 08:21] VITALS: BP 148/99; PULSE 47; RESP 16; TEMP 36.8; O2SAT 99
[2023-03-08] MEDS: LACTATED RINGERS 1000 ML 1,000 ML 100 ML IV (08:28)
[2023-03-08] MEDS: CEFAZOLIN 2 GM INJ IVP (09:20)
[2023-03-08] MEDS: BUPIVACAINE 0.25% 30 ML INJECTION (09:31)
[2023-03-08] MEDS: LIDOCAINE 1% 5 ml (pf) 5 ML VIAL 30 ML INJECTION (09:31)
[2023-03-08] MEDS: BACITRACIN OINTMENT BULK TUBE 1 APPLIC TOPICAL (10:38)
[2023-03-08 10:55] VITALS: BP 90/67; PULSE 50; RESP 16; TEMP 36.4; O2SAT 96
--- NOTE | 2023-03-08 10:55 | P.GSOP_ITS ---
Operative Note Date of procedure: 03/08/23 Pre-op diagnosis: 1. 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 Left facial lesion Post-op diagnosis: Same Type of Procedure: 1. Wide excision left calf melanoma, initial lesion, 0.4 cm, area of excision, 2.5 x 7.5 cm down to fascia 2. Wide excision, right posterior ankle dysplastic nevus with severe atypia, original lesion measurement 0.3 cm, area of excision 1.5 x 4.5 cm 3. Excision left facial lesion, 4 mm. 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 She was lost to follow-up, however she did follow- up with Dermatology recently. Multiple lesions were removed. In particular, she had a lesion on her right lower leg and her left lower leg which were concerning. The lesion on her right lower leg on the posterior ankle was found to be a severely atypical compound dysplastic nevus. Recommended margins were 5 mm and therefore it was recommended she have a larger definitive excision. The left lesion pathology returned as malignant melanoma with a Breslow depth of 0.5 mm, no ulceration or angiolymphatic/perineural invasion. She was also recommended to undergo wider excision. She additionally had a lesion on her left lower face lateral to her mouth that she also desired to be removed. Procedure Description: After discussing the risks and benefits of the procedure, the patient signed informed consent.? The operative sites were marked and the patient was brought to the operating room and placed on the operating table in prone position.? Care was taken to pad the patient's pressure points.?? The patient was then given sedation by anesthesia.?? The operative site was then prepped and draped in the usual sterile fashion.? A time-out was then performed. I began on the right. I 1st measured the lesion and marked out 5 mm margins on either side. This measured 1.5 cm across. I then created a 4.5 cm ellipse in a 3-1 ratio. Local anesthetic was then injected into the skin and subcutaneous tissue around the planned area of excision. A knife was then used to create the elliptical incision and dissected down to subcutaneous fat. A small bleeding vein was oversewn with suture resulting in hemostasis. When the specimen was completely free, this was marked with a stitch at 12 o'clock or proximal. This was sent to pathology for permanent section. I then created skin flaps, undermining for approximately 1 cm either side using cautery. The wound was then closed with 3-0 Vicryl dermal and 4-0 Monocryl subcuticular suture. Because the wound was under slight tension in the midline, additionally vertical mattress suture was placed at the midportion of the incision with 3-0 Ethilon. I then turned my attention to the left. Similarly, I measured out 1 cm margins on either side. This measured 2.5 cm therefore I marked out an ellipse measuring 7.5 cm. Local anesthetic was then injected in the skin and subcutaneous tissue around the lesion. Knife was then used to create the ellipse. Dissection was taken down to the fascia using cautery. Once the specimen was removed it was marked with a stitch at 12 o'clock or proximal. Hemostasis was achieved with cautery. Similarly, skin flaps were created on either side of the incision for 2 cm on either side. This did allow the skin edges to come together with slight tension at the mid point. The wound was closed similarly with 3-0 Vicryl dermal and 4-0 Monocryl running subcuticular suture. The midportion was reinforced with 3-0 Ethilon suture in a vertical mattress fashion where the incision was under more tension. Sterile dressings were then applied. Иван wraps were then applied. The patient was then repositioned supine on the transport cart. The left face was prepped and draped sterilely again. Local anesthetic was injected into the skin around an underlying the lesion. I then used a Whitefield blade to precisely excise the lesion at its edge, taking an ellipse of tissue, following Kassy's lines. A small bleeding vessel was cauterized. The specimen was sent with a stitch at 12 o'clock or superior. This was then closed with 5 0 Monocryl in a running subcuticular fashion. A sterile dressing was then applied. The patient was then woken and transported to the recovery area in stable condition. The patient tolerated the procedure well. Anesthesia: MAC and local Surgeon: Connie Salcido MD Estimated blood loss (mL): 10 Specimen: Other Additional Specimen Information: 1. Right posterior ankle lesion, stitch 12 o'clock or proximal. 2. Left calf melanoma, stitch 12 o'clock or proximal. 3. left face lesion, stitch 12 o'clock or superior. Condition: stable Disposition: same day Primary Cutaneous Melanoma Operation Performed with Curative Intent: Yes Original Breslow thickness of the lesion: Depth in mm 0.5 Clinical margin width (measured from the edge of the lesion or the prior excision scar): 1 cm Depth of Excision: Full thickness skin/subcutaneous tissue down to fascia (melanoma)
--- NOTE | 2023-03-08 10:55 | W.PM.H&PU ---
History & Physical Update History & Physical Update H&P Reviewed and patient assessed: No changes noted
--- NOTE | 2023-03-08 10:55 | W.ANESCHARGE ---
Anesthesia Charges Start Date/Time Anesthesia Start Date: 03/08/23 Anesthesia Start Time: 09:12 Stop Date/Time Anesthesia Stop Date: 03/08/23 Anesthesia Stop Time: 10:52
[2023-03-08 11:10] VITALS: BP 106/74; PULSE 43; RESP 16; O2SAT 99
[2023-03-08 11:25] VITALS: BP 100/69; PULSE 40; RESP 16; O2SAT 100
[2023-03-08 11:38] VITALS: BP 107/67; PULSE 37; RESP 16; O2SAT 100
[2023-03-08 11:50] VITALS: BP 116/71; PULSE 42; RESP 16; O2SAT 100
== END 2023-03-08 12:15 | disposition home or self-care (01) ==
PROVIDERS: PCP Family Medicine; Visit Provider Surgery
PROC: (CPT 11606; principal; 2023-03-08 09:15)
PROC: 0HB1XZZ Excision of Face Skin, External Approach (ICD-10-PCS; CPT 11606; 2023-03-08 09:15)
DX: C43.72 Malignant melanoma of left lower limb, including hip (principal); D22.71 Melanocytic nevi of right lower limb, including hip; D22.39 Melanocytic nevi of other parts of face
CPT/HCPCS: 11606; 11406; 11442; 12034; 00300; 76882; 88305; J0665; J0690; J1885; J2250; J2405; J2704; J3010; J3490; J7120

== ENCOUNTER 2023-08-31 12:45 | Outpatient (CLI) | payer OTHER, SELFPAY ==
--- OUTSIDE RECORDS SUMMARY | 2023-08-31 12:47 | XMS_ITS | Encounter Summary ---
Author Organization [facility] Address [address] [address] Care Team Providers Care Vehicle Calibration Engineer Name Role Phone Lang Mohamud MD Primary Care Provider [phone] Reason for Visit * Reason Comments Skin Exam Full Body Exam Iram rns:noneHx:MM,DN Encounter Details Date Type Department Care Team (Late st Contact Info) Description 06/03/2023 10:00 AM CDT Office Visit [facility] [address] [place] [address] Connie Mendez MD [address] [place] [id number] Skin exam, screening for cancer (Primary Dx); Sun-damaged skin; Julio angioma; Multiple melanocytic nevi; Seborrheic keratosis; Solar lentiginosis; Personal history of malignant melanoma of skin; History of dysplastic nevus Social History Tobacco Use Types Packs/Day Years [...] this encounter Patient Instructions * Patient Instructions* Christina Simms LPN - 06/03/2023 10:00 AM CDT Images from the original note were not included. SUN PROTECTION GUIDELINES Recommendations to protect yourself from the sun: * Use sunscreen regularly (see instructions below); * Sun protection: wear wide-brimmed hats, long-sleeves, and sun-protective clothing (look for UPF50); * Sun avoidance: stay out of the sun during the middle of the day (between 10 am and 4 pm) when thesun is strongest and can cause the most damage; check the UV index (on almost all weather apps/websites) and if it is >3, you need protection! * Self-examinations: monitor the skin monthly for any obvious changes in the skin, and if moles show changes in size, shape, color, or character, contact us to discuss re-evaluation. For areas that are difficult to see, have someone take a photo on your phone and then compare your skin to that original photo once a month. Pay attention to new spots, ugly ducklings that are unlike your other spots, and spots that don't heal Sun protective gear tips/resources: -- Rit Sunguard: also available from [employer] and will provide UPF 30 protection to clothes for up to 30 washes -- Coolibar sun protective clothing: available online through the company website or I Gotchu to find coupons available, since they are almost always 15% off -- Wednesday Afternoons hats and rash guards (available online) Sunscreen Information Sunscreens are an important tool to help protect yourself from the harmful rays of the sun). They come in two flavors: physical / mineral (titanium dioxide or zinc oxide = block the sun's rays from harming your skin) and chemical (all other active sunscreen ingredients = change the way the sun's energy affects your skin). You can find this information listed as active ingredients on the container. Using physical blockers (containing ONLY titanium dioxide and/or zinc oxide as active ingredients) may help to minimize irritation due to sunscreen use. We recommend these as they simply block the rays of the sun, but chemical sunscreens can be easier to apply, so many people prefer them. SPF stands for ???Sun Protection Factor?? and represents the ability to screen only UVB (burning) rays. UVB rays are mostly blocked in all sunscreens, but only those that contain titanium dioxide, zinc oxide, mexoryl or Parsol 1789 (avobenzone) block the UVA spectrum. Zinc oxide is the best of all. Even though a sunscreen is labeled ???UVA/UVB Protection,?? it might not be entirely accurate because even partial protection allows this label! General sunscreen guidelines: - Find sunscreens you like and use them. :) Make it part of your daily routine. - Apply 20 minutes before sun exposure and then every 2 hours while out in the sun (more frequentlyif sweating or swimming) - set an alarm on your phone! - Use SPF 30 or higher. SPF 15 provides about 92-93% coverage, SPF 30 about 95- 97% coverage, and SPF 45 about 98% coverage. That is to say, SPF 30 is not twice as good as SPF 15; think of it as a curve graph. - Make sure it is BROAD SPECTRUM [these protect against all UVB (Burning) rays and UVA (Aging, cAncer, tAnning) rays]. See table below. - For your body, you should be applying at least one ounce (size of golf ball/shot glass) per application. - Makeup is usually not enough protection. - Combination sunscreen-insect repellants are not recommended as sunscreen needs to be reapplied every 2 hours; insect repellant does not, and that would lead to too much DEET exposure. - Sunscreen sprays are okay for RE-APPLICATION only. Most people do not spray enough on to get goodenough protection. Recommendation: Use a lotion-based sunscreen to get a good first/base layer. UVA BLOCKERS: Make sure your sunscreen has one of these active ingredients! Everything else in the ???active ingredients?? box of a sunscreen label blocks UVB only. Zinc Oxide (preferred) Titanium dioxide Parsol 1789 (avobenzone) Mexoryl Examples of some good sunscreens* Absolutely-Snapshot Interactive.[employer] Aveeno Baby [place] sunscreens [place] Blue Lizard BullFrog CaliforniaBaby Coppertone Spectra3 [facility] Elta Fallene/TotalBlock Neutrogena NoAd Vanicream WaterBabies Sticks work great, like Neutrogena pure and free baby SPF 60 stick * Note, this list is not meant to be comprehensive, just trying to pull together some names that might be helpful to you. If they are not at a local store, they can be found on-line for order. EACH NAMEBRAND MAKES MULTIPLE TYPES SO YOU STILL HAVE TO CHECK FOR ONE OF THE FOUR INGREDIENTS LISTED IN THE LEFT COLUMN!!! Vitamin D: We get vitamin D through the skin. If you do not get enough sun in the summer to get tanlines, you should take a vitamin D supplement: 400units for children and 1000units for adults per day. Some people prefer to use a daily facial moisturizer with sunscreen in it. The principles above apply, so check the active ingredient list. Examples: - Cetaphil Facial Moisturizer for all skin types, SPF 50 (5.7% titanium dioxide & chemicals) - Clinique Super City Block, SPF 40 (8.8% zinc oxide, 6.6% titanium dioxide & chemicals) - Eucerin Every Day Protection Face Lotion, SPF 30 (5% zinc, 2.5% titanium dioxide & chemicals) - La Mely Posay Toleriane Double Repair Moisturizer UV, SPF 30 (chemicals) - Olay Complete UV365 Daily Moisturizer with Sunscreen, SPF 30 (7.0% zinc & chemicals) SUNBLOCKS FOR SENSITIVE SKIN Sunscreens can cause different types of reactions in people with with sensitive skin. The list below (exact product listed) includes sunscreens that are less likely to cause these reactions because 1) they contain ONLY physical sunblock ingredients [zinc oxide and titanium dioxide], and 2) they do not contain any chemical sunscreens/fragrance additives/formaldehyde preservatives/or methylisothiazolinone. - Cerave Baby Mineral Sunscreen Lotion SPF 45 - EltaMD UV Physical broad-spectrum SPF 41 - EltaMD UV Pure broad-spectrum SPF 47 - Neutrogena Healthy Defense Daily Moisturizer with Sunscreen PureScreen Sensitive Skin SPF 50 - Neutrogena Pure and Free Baby Sunblock Stick SPF 60 (stick only!) - TIZO Ultra Zinc Body & Face Sunscreen Non-Tinted SPF 40 Broad Spectrum - Vanicream Sunscreen Sport Broad Spectrum SPF 35 (www.Vanicream.[employer] or ) Other sunscreens with physical sunblock molecules (no chemical sunblock molecules) include: - Aveeno Active Naturals Natural Protection Mineral Block SPF30 (regular and baby) - Blue Lizard Sensitive SPF 30 - Blue Lizard Baby SPF 30+ - Neutrogena Sensitive Skin SPF 30, 60+ - Walgreen???s Sensitive Skin SPF 70 - Neutrogena pure and free facial lotion SPF50 Tinted sunscreens: Can be more expensive, but don't look white & are generally smooth to apply. Look for iron oxide(s) in ingredient list as these particles can block visible light, which helps pigmentation issues like melasma. - Skinceuticals Physical Fusion SPF 50 - about $30 and available at [employer] in stores - La Mely Posay Antihelios mineral sunscreen SPF 50 - Jenise PAULA UV Physical Broad Spectrum SPF 41 - this is my favorite (about $28 available on [employer], [employer], and [employer]; not found in stores) - Jenise PAULA UV Clear Broad-Spectrum Tinted SPF 46 - Epionce Daily Shield Lotion Tinted SPF 50 - MDSolarSciences Mineral Creme Broad Spectrum SPF 50 - Supergoop! Daily Correct CC Cream SPF35 (more like a foundation/concealer) Sun protection for children: - Sun avoidance and sun protective clothing are mainstays for protecting kids from the harmful raysof the suns. I love the kids' play hat from Wednesday Afternoons! - Use physical sunscreens whenever possible. Pay attention to active ingredient labels - just because something says Baby on it does not mean it is a safe sunscreen. Some have physical and chemicalingredients. See lists above for physical sunscreens and sunblocks for sensitive skin. Other options include: Aveeno Baby Continuous Protection Sunscreen SPF 50, Neutrogena Baby, Mustela Mineral Sunscreen Lotion. - Sprays are generally not recommended, at least not on the face. - Sunscreen is generally not recommended for infants less than 6 months old, but physical sunblockscan be applied to limited areas if out for extended periods. Talk to your nuclear engineer. Many local pharmacies and [employer] stores carry some of these options or you may purchase themonline at www.[employer] or www.MetroMile. If you've had trouble finding a sunscreen that works for you, ask your nuclear engineer. You can also find great information and FAQs in patient section of the [employer] website - aad.org ABCDE of Self Skin Cancer Screening: You may not be able to reverse sun damage however self monitoring is MICHELE to staying healthy. Monthly at home skin checks monitoring for any changes and staying up to date with what your nuclear engineer recommends for in-office screening are two of [...] not previously been examined, please contact your nuclear engineer via WonderHill[employer]. YOU are the BEST advocate for your skin! 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 Reports that she had surgery in the lymph node basin and had regular ultrasound monitoring every three months for one year. Did meet with an oncologist, thinks that thiswas a Dr. Pepe Epperson and elected not to go forward with immunotherapy. Those records are not availa ble. - left lower leg posterior, Breslow depth 0.5 mm History of dysplastic nevi - moderate atypia, left breast, shave removal 02/16/23 - Severely atypical, right lower posterior distal leg, bx 02/16/23 Blue nevus colliding with small junctional lentiginous nevus, right posterior shoulder, shave removal 02/16/23 Chief Complaint Patient presents with Skin Exam Full Body Exam Concerns: Hx:MM,DN History of Present Illness: Ashlyn Wu is a 52 y.o. female who presents for a full body skin exam today. I last saw her in February, at which time I biopsied a melanoma on her left lower posterior leg as well as a severelyatypical dysplastic nevus on her right lower posterior distal leg, as well as a blue nevus on her shoulder and a moderately dysplastic nevus on her left chest. I had also injected a prurigo nodule onher posterior neck with intralesional Kenalog and she reports that this is much better today. Since our last visit, has had both the left lower posterior leg melanoma excised as well as the severely dysplastic nevus on her right lower posterior distal leg excised. 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 Bella. Records are not available today but she is okay with having the sent over. Today, she denies any particular spots that have been changing to her knowledge. She is otherwise feeling well with no fevers, chills, night sweats or unintentional weight loss. Past Medical History, Family History: Reviewed and updated in [facility] Social History: Lives in [place], two teenage children, one age 18. Medications: The patient has a current medication list which includes the following prescription(s): drysol, atenolol, clobetasol, and rizatriptan. Allergies: The patient has No [...] exam, screening for cancer 2. Sun-damaged skin Family history of melanoma in brother (who also has a history of renal cell carcinoma) - Reviewed risk factors for melanoma and nonmelanoma skin cancers - ABCDEs reviewed in clinic and in AVS or bookmark handout - Recommended SPF 30+ sunscreen every day and sun protective clothing Reports that genetic testing has previously been discussed with her in her brother and she has deferred. Defers again today. 3. Julio angioma - bright red 1-3 mm dome-shaped papules with red lobules under dermoscopy present on trunk Benign, reassured. 4. Multiple melanocytic nevi - Scattered 3-5 mm uniformly colored, bland, symmetrical brown macules and papules on trunk, arms, and legs Benign, reassured. 5. Seborrheic keratosis Silva to brown, stuck-on, waxy papule(s) 6. Solar lentiginosis Silva macules in sun-exposed areas. No clinical outliers noted Reassurance provided 7. Personal history of malignant melanoma of skin Well healed scar with no evidence of recurrence noted. - no evidence of cervical, axillary or inguinal lymphadenopathy Reassurance provided. I did recommend that we get the records sent over so that I can double check that treatment has been sufficient. 8. History of dysplastic nevus - well-healed scars with no evidence of pigment recurrence Benign nature dicussed, reassurance provided Follow up: Return to clinic pending biopsy results, sooner for new concerns. Connie Mendez MD [facility] documented in this encounter Plan of Treatment Upcoming Encounters Date Type Department Care Team (Late st Contact Info) Description 09/02/2023 10:00 AM CDT Appointment [facility] [address] [place] [id number] Connie Mendez MD [address] [place] [phone] 12/08/2023 10:30 AM CDT Appointment [facility] [address] [place] [phone] Connie Mendez MD [address] [place] [phone] 02/22/2024 10:15 AM CLUB FORMER Appointment [facility] [address] [place] [id number] [place] [address] [place] [phone] 06/07/2024 10:30 AM CDT Appointment [facility] [address] [place] [id number] Connie Mendez MD [address] [place] [phone] documented as of this encounter Visit Diagnoses Diagnosis Skin exam, screening for cancer- Primary Screening for malignant neoplasm of the skin Sun-damaged skin Other chronic dermatitis due to solar radiation Julio angioma Nevus, non-neoplastic Multiple melanocytic nevi Seborrheic keratosis Other seborrheic keratosis Solar lentiginosis Other dyschromia Personal history of malignant melanoma of skin History of dysplastic nevus Personal history of diseases of skin and subcutaneous tissue documented in this encounter Care Teams Vehicle Calibration Engineer Relationship Specialty [place] [address] [place] [address] PCP - General Family Practice 08/21/20 documented as of this encounter
--- OUTSIDE RECORDS SUMMARY | 2023-08-31 12:47 | XMS_ITS | Clinical Summary ---
[facility] Organization [facility] Address [address] [place] [address] Care Team Providers Care Pump Service Supervisor Name Role Phone Lang Mohamud MD Primary Care Provider [phone] Source Comments You are receiving this document as you are listed as the primary care provider,follow-up provider, or the patient has been referred to you for consultation.This is in compliance with the Medicare andProm[facility] Hospital[facility] EHR Incentive Program,which states Providers who transition their patient to another setting of careor provider of care or refers their patient to another provider of care shouldprovide summary care record for each transition of care or referral. [facility] Allerg[facility] No known active allergies Medications Medication [...] on neck 15 g 1 02/16/2023 Active lisinopril (ZESTRIL) 10 MG tablet Take 1 Tablet (10 mg) by mouth daily. 02/09/2023 Active Active Problems Problem Noted Date Diagnosed [...] Care Team Description 06/03/2023 10:00 AM CDT Office Visit [facility] [address] [place] [address] Connie Mendez MD Skin exam, screening for cancer (Primary Dx); Sun-damaged skin; Julio angioma; Multiple melanocytic nevi; Seborrheic keratosis; Solar lentiginosis; Personal history of malignant melanoma of skin; History of dysplastic nevus from Last 3 Months Immunizations Name Administration Dates Next Due Flu Vac Preserv Free (3+yrs) 11/15/2019, 11/10/2017,11/13/2011, 011,10/31/2009,11/12/2008,12/24/2007,01/2007,11/29/2005 Flublok (RIV4) 11/09/2018 Fluzone Qiv Multidose Vial 0 .25 (6-35 Mos) 11/06/2020 H1n1 Miv Sanofi 3+ Yr (Injected) 12/10/2008 HepA Adult (19+ yrs) 07/06/2012,12/25/2011 Influenza (Fluzone ID) 11/25/2016 Influenza IIV4 (Quadrivalent ) 0.5mL (93860) 11/11/2015,01/12/2014,11/03/2012 Influenza LAIV (Nasal, 2-49 yrs) 11/14/2014 [...] Info) Description 09/02/2023 10:00 AM CDT Appointment [facility] [address] [place] [address] Connie Mendez MD [address] [place] [address] 12/08/2023 10:30 AM CDT Appointment [facility] [address] [place] [address] [place] [address] [place] [id number] 02/22/2024 10:15 AM OSTEOPATHIC PHYSICIAN Appointment [address] [address] [place] [address] [place] [address] 06/07/2024 10:30 AM CDT Appointment [facility] [address] [place] [address] [place] [address] [place] [address] [id number] Health Maintenance Due Date Last Done Comments HepB (1) 09/08/1987 Cervical Cancer Screening 08/01/20182015, 01/30/2013, 04/07/2010, Additional history exists Zoster/Shingles (1 of 2) 2018 Adult Preventive Visit 08/23/2021 08/23/2020, 2018 DTaP/Tdap/Td (3 - Tdap) 11/12/2021 11/13/2011, 11/19 COVID-19 Vaccine ( season) 2023 11/03/2022, 11/05/2021, 06/03/2021, Additional history exists Influenza (#1) 2023 11/03/2022, 11/08, 11/06/2020, Additional history exists Colonoscopy 11/18/2023 11/17/2018 Mammogram 01/30/2024 01/29/2023, 11/08, 10/18/2020 (Completed), Additional history exists Cholesterol 08/23/2025 08/23/2020, 02/0 09/2018, 08/02/2015, Additional history exists HepA Completed 07/06/2012, 12/25/2011 HIV Screening (Preventive Services) Completed 08/02/2015, 07/09/2008, 10/29/2007, Additional history exists Hep C Screening (Preventive Services) Completed 08/02/2015, 10/29/2007 Hib Aged Out No longer eligi ble [...] Date/Time Associated Diagnosis Comments MAMMOGRAM SC 01/29/2023 LIPID PANEL & DIRECT LDL (IF NEEDED) Routine 08/23/2020 2:16 PM CDT Well adult exam ENDOSCOPY, COLON, SCREENING/DIAGNOSTI C Routine 11/17/2018 1:26 PM CDT Screening for colon cancer HIV-1 P24 AND HIV-1/HIV-2 ANTIBODIES Routine 08/02/2015 5:03 PM CDT Routine screening for STI (sexually transmitted infection) HEPATITIS C ANTIBODY, WITH REFLEX Routine 08/02/2015 5:03 PM CDT Routine screening for STI (sexually transmitted infection) ANATOMICAL PATH LIQUID BASED Routine 08/02/2015 4:59 PM CDT from Last 3 Months or Most Recently Relevant to Health Maintenance Results * MAMMOGRAM SC (01/29/2023) Interface Provider MD ANN/OTHER/AR * (ABNORMAL) Lipid Panel - LDLD If Trig High (08/23/2020 2:16 PM CDT) Cholesterol 216(H) 0 - 199 mg/dL 08/23/2020 8:58 PM CDT [facility] Triglyceride 136 <=149 mg/dL 08/23/2020 8:58 PM CDT [facility] HDL Cholesterol 52 >=40 mg/dL 8:58 PM CDT [facility] LDL, Calculated 137(H) <130 mg/dL 8:58 PM CDT [facility] Non HDL Chol, Calculated 164(H) <=159 mg/dL 08/23/2020 8:58 PM CDT [facility] Cholesterol/HDL Ratio 4.2 08/23/2020 8:58 PM CDT [facility] Hours Fasting 12 08/23/2020 8:58 PM CDT [facility] Blood Venipuncture / Unknown 08/23/2020 2:16 PM CDT 08/23/2020 2:16 PM CDT Elvin Haque PA-C LAB_1 [facility] [address] [place] [address], [facility] [phone] [facility] [address] [place] [address], [facility] [phone] * Colonoscopy (11/17/2018 1:26 PM CDT) 11/17/2018 1:26 PM CDT Narrative GI ([facility]) - 11/17/2018 1:26 PM CDT Patient Name: Ashlyn Wu Procedure Date: 11/17/2018 1:26 PM Date of : 1970 Admit Type: Outpatient Age: 48 Note Status: Finalized Attending MD: Jona Alegria MD Procedure: ? Colonoscopy Indications: ? Screening for colorectal malignant ? neoplasm, This is the patient's first ? colonoscopy, The patient has no known ? family history of colon polyps or ? colon cancer. Providers: ? Jona Alegria MD, Merced Lynne RN Referring MD: ?Lang Mohamud MD Medicines: ? Midazolam 4 mg IV, Fentanyl 150 ? micrograms IV Complications: ? No immediate complications. Procedure: ? After I obtained informed consent, ? the scope was passed under direct ? vision. Throughout the procedure, the ? patient's blood pressure, pulse, and ? oxygen saturations were monitored ? continuously. The Colonoscope was ? introduced through the anus and ? advanced to the terminal ileum, with ? identification of the appendiceal ? orifice and IC valve. The colonoscopy ? was performed without difficulty. The ? patient tolerated the procedure well. ? The quality of the bowel preparation ? was good. Findings: ? The perianal and digital rectal examinations were ? normal. ? The terminal ileum appeared normal. ? Retroflexion in the right colon was performed. ? A 3 mm polyp was found in the sigmoid colon. The ? polyp was sessile. The polyp was removed with a cold ? biopsy forceps. Resection and retrieval were ? complete. Verification of patient identification for ? the specimen was done. Estimated blood loss was ? minimal. ? Anal papilla(e) were hypertrophied. ? The exam was otherwise normal throughout the examined ? colon. Moderate Sedation: ? Moderate (conscious) sedation was administered by the ? endoscopy nurse and supervised by the endoscopist. ? The following parameters were monitored: oxygen ? saturation, heart rate, blood pressure, and response ? to care. Total physician intraservice time was 33 ? minutes. Impression: ?- The examined portion of the ileum ? was normal. ? - One 3 mm polyp in the sigmoid ? colon, removed with a cold biopsy ? forceps. Resected and retrieved. ? - Anal papilla(e) were hypertrophied. Recommendation: ?- Discharge patient to home. ? - Await pathology results. ? - Repeat colonoscopy for surveillance ? based on pathology results. ? - The findings and recommendations ? were discussed with the patient. Procedure Code(s): ?? --- Professional --- ? 65525, Colonoscopy, flexible; with ? biopsy, single or multiple ? 15686, Moderate sedation; each ? additional 15 minutes intraservice ? time ? G0500, Moderate sedation services ? provided by the same physician or ? other qualified health care ? professional performing a ? gastrointestinal endoscopic service ? that sedation supports, requiring the ? presence of an independent trained ? observer to assist in the monitoring ? of the patient's level of ? consciousness and physiological ? status; initial 15 minutes of ? intra-service time; patient age 5 ? years or older (additional time may ? be reported with 26852, as ? appropriate) Diagnosis Code(s): ?? --- Professional --- ? Z12.11, Encounter for screening for ? malignant neoplasm of colon ? D12.5, Benign neoplasm of sigmoid ? colon ? K62.89, Other specified diseases of ? anus and rectum CPT copyright 2018 [employer]. All rights reserved. The codes documented in this report are preliminary and upon physician industrial review may be revised to meet current compliance requirements. Jona Alegria MD 11/17/2018 2:11:41 PM Number of Addenda: 0 Note Initiated On: 11/17/2018 1:26 PM ? Endoscopy Report Procedure Note Jona Alegria MD - 11/17/2018 Patient Name: Ashlyn Wu Procedure Date: 11/17/2018 1:26 PM Date of : 1970 Admit Type: Outpatient Age: 48 Note Status: Finalized Attending MD: Jona Alegria MD Procedure: Colonoscopy Indications: Screening for colorectal malignant neoplasm, This is the patient's first colonoscopy, The patient has no known family history of colon polyps or colon cancer. Providers: Jona Alegria MD, Merced Lynne RN Referring MD: Lang Mohamud MD Medicines: Midazolam 4 mg IV, Fentanyl 150 micrograms IV Complications: No immediate complications. Procedure: After I obtained informed consent, the scope was passed under direct vision. Throughout the procedure, the patient's blood pressure, pulse, and oxygen saturations were monitored continuously. The Colonoscope was introduced through the anus and advanced to the terminal ileum, with identification of the appendiceal orifice and IC valve. The colonoscopy was performed without difficulty. The patient tolerated the procedure well. The quality of the bowel preparation was good. Findings: The perianal and digital rectal examinations were normal. The terminal ileum appeared normal. Retroflexion in the right colon was performed. A 3 mm polyp was found in the sigmoid colon. The polyp was sessile. The polyp was removed with a cold biopsy forceps. Resection and retrieval were complete. Verification of patient identification for the specimen was done. Estimated blood loss was minimal. Anal papilla(e) were hypertrophied. The exam was otherwise normal throughout the examined colon. Moderate Sedation: Moderate (conscious) sedation was administered by the endoscopy nurse and supervised by the endoscopist. The following parameters were monitored: oxygen saturation, heart rate, blood pressure, and response to care. Total physician intraservice time was 33 minutes. Impression: - The examined portion of the ileum was normal. - One 3 mm polyp in the sigmoid colon, removed with a cold biopsy forceps. Resected and retrieved. - Anal papilla(e) were hypertrophied. Recommendation: - Discharge patient to home. - Await pathology results. - Repeat colonoscopy for surveillance based on pathology results. - The findings and recommendations were discussed with the patient. Procedure Code(s): --- Professional --- 08895, Colonoscopy, flexible; with biopsy, single or multiple 53148, Moderate sedation; each additional 15 minutes intraservice time G0500, Moderate sedation services provided by the same physician or other qualified health healthcare management consultant performing a gastrointestinal endoscopic service that sedation supports, requiring the presence of an independent trained observer to assist in the monitoring of the patient's level of consciousness and physiological status; initial 15 minutes of intra-service time; patient age 5 years or older (additional time may be reported with 10882, as appropriate) Diagnosis Code(s): --- Professional --- Z12.11, Encounter for screening for malignant neoplasm of colon D12.5, Benign neoplasm of sigmoid colon K62.89, Other specified diseases of anus and rectum CPT copyright 2018 [employer]. All rights reserved. The codes documented in this report are preliminary and upon physician industrial review may be revised to meet current compliance requirements. Jona Alegria MD 11/17/2018 2:11:41 PM Number of Addenda: 0 Note Initiated On: 11/17/2018 1:26 PM Endoscopy Report Lang Mohamud MD PN GI PROCEDURE ELICIA ENGLISH Performing Organization Address [facility] Co de Phone Number GI ([facility]) [place], [place] * HIV-1 P24 AND HIV-1/HIV-2 ANTIBODIES (08/02/2015 5:03 PM CDT) HIV-1 p24 Ag and HIV-1/HIV-2 Ab Nonreactive Non-React jacqui HP CONVERSION 08/02/2015 5:03 PM CDT 08/02/2015 9:59 PM CDT Narrative HP CONVERSION - 08/02/2015 10:42 PM CD[place] [address] CLIA number [id number] Lulú Mitchell PA-C LAB_1 Performing Organization Address [facility] de Phone Number HP CONVERSION * Hepatitis C Antibody, with Reflex (08/02/2015 5:03 PM CDT) Hepatitis C Antibody Nonreactive Non-React jacqui HP CONVERSION 08/02/2015 5:03 PM CDT 08/02/2015 9:59 PM CDT Narrative HP CONVERSION - 08/02/2015 10:42 PM CDT [place] [address] CLIA number [id number] Lulú Mitchell PA-C LAB_1 Performing Organization Address [facility] de Phone Number HP CONVERSION * Pap Smear (08/02/2015 4:59 PM CDT) 08/02/2015 4:59 PM CDT Narrative HP CONVERSION - 08/08/2015 4:24 PM CDT FINAL GYNECOLOGICAL CYTOLOGY REPORT Pathology #: [id number] ?Date Obtained: 08/02/2015 ? Date Received: 08/05/2015 INTERPRETATION/RESULTS: Negative for Intraepithelial Lesion or Malignancy. Fungal organisms morphologically consistent with Halle species. SPECIMEN ADEQUACY: Satisfactory for Evaluation. ??Endocervical cells/transformation zone component present. Verified on 08/08/2015 ??by ANGE LOBO(ASCP) (electronic signature) CLINICAL NOTES: ?Abnormal bleeding: No, LMP: 07/24/15, Menstrual status: None ?Apply, Current form of therapy: None apply LIQUID BASED PAP SMEAR SPECIMEN TYPE: ?ROUTINE CERVICAL PAP TEST PLEASE NOTE: The pap smear is a screening test designed to aid in the detection of cervical cancer and its precursor lesions. It is not a diagnostic procedure and should not be used as the sole means of detecting cervical cancer. Both false-positive and false-negative reports may occur. Performed at [facility], [address] [place] [address] Transcriptions 03/18/2016 4:37 PM CSTNotes Recorded by Emma Sandoval RN on 08/09/2015 at 3:07 PMMarquita Goldberg,I am writing to let you know that your PAP and HPV is negative. This means that your pap result was normal. No cancer or precancerous cells were seen.However, your screening result shows the presence of yeast. Yeast and bacteria are commonly found in the vagina. We do not normally treat if you are not experiencing any symptoms. If you are experiencing any vaginal symptoms of burning, discharge, itching or foul odor, please call your primary clinic for treatment options.Your next PAP and HPV should be in 3 years. Continue to schedule your annual preventive exams for your overall health.Sincerely,Emma Sandoval RN on behalf ofDr. Silvia Avitia, Medical DirectorPromedica Bay Park Hospitalk [place] Cervical Cancer Screening and Management Lulú Mitchell PA-C LAB_1 HP CONVERSION from Last 3 Months or Most Recently Relevant to Health Maintenance Care Teams Pump Service Supervisor Relationship Specialty [place] [address] [place] [address] PCP - General Family Practice 08/21/20
--- OUTSIDE RECORDS SUMMARY | 2023-08-31 12:47 | XMS_ITS | Clinical Summary ---
Author Organization [facility] Address [place], [place] [address] Care Team Providers Care Medical Physiologist Name Role Phone Lang Mohamud MD Primary Care Provider [phone] Allergies No known active allergies Medications Medication Sig Dispensed Refills Start Date End Date Status labetalol (TRANDATE) 200 mg tablet take 1 tablet (200 mg) by oral route 2 times per day Active Scuprren-Yd-Okd-Fe-FA ( VITAMIN) Tab take 1 tablet by oral route once daily Active ERGOCALCIFEROL (VITAMIN D ORAL) None Entered Active CA CARBONATE/VITAMIN D3/VIT K (SOFT CHEWS CALCIUM ORAL) None Entered Active acetaminophen (TYLENOL) 325 mg tablet Take 1-2 325mg tablets by mouth every 4 hours for mild pain as needed. 0 0 01/19/2009 Active ibuprofen (ADVIL; MOTRIN) 200 mg Cap Take 1-3 200mg tablets by mouth every 6 hours for uterine cramping as needed 0 0 01/19/2009 Active Ycplulxc-Xe-Jrk-Fe-FA Tab Take 1 tablet by mouth each day 0 0 01/19/2009 Active Active Problems Problem Noted Date Diagnosed Date Advanced maternal age, antepartum condition or c omplication 01/17/2009 Chronic hypertension complic ating or reason for care during 01/17/2009 Chronic hypertension complic ating or reason for care during 01/16/2009 Advanced maternal age 1201/16/2009 Estimated Date of Delivery Comme nts Yes 02/05/2009 Social History Tobacco Use Types Packs/Day Years [...] Outcome GA Total Labor Labor/2nd/3rd Weight Sex Type Anes PTL Lala A1 A5 Name Clin 08/17 Term 39w 0d 2.92 kg (6 lb 7 oz) F Vag-F orcep s Epidura l N Livin g Dr Connolly an Current Last Filed Vital Signs Vital Sign Reading Time Taken Comments Blood Pressure 129/84 01/19/2009 3:45 PM AUTOMATION AND CONTROL ENGINEER Pulse 67 01/19/2009 3:45 PM AUTOMATION AND CONTROL ENGINEER Temperature 36.7 ??C (98 ??F) 01/19/2009 3:45 PM AUTOMATION AND CONTROL ENGINEER Respiratory Rate 18 01/19/2009 3:45 PM AUTOMATION AND CONTROL ENGINEER Oxygen Saturation 94% 01/18/2009 2:50 PM AUTOMATION AND CONTROL ENGINEER Inhaled Oxygen Concentration - - Weight 84.8 kg (187 lb) 01/17/2009 10:15 PM AUTOMATION AND CONTROL ENGINEER Height 174 cm (5' 8.5) 01/17/2009 10:15 PM AUTOMATION AND CONTROL ENGINEER Body Mass Index 28.02 01/17/2009 10:15 PM AUTOMATION AND CONTROL ENGINEER Plan of Treatment Health Maintenance Due Date [...] 10/18/2021 10/19/19 21, 07/17/2019 COVID-19 vaccine series ( season) 2022 06/03/2021, 11/06/2020 Influenza for age 50-64 10/10/2023 Pap test for age 21-65 02/09/2026 , 02/09/2023 Pneumococcal series for age 6-64 Aged Out No longer eligible b ased on patient's age to complete this topic Procedures Procedure Name Priority Date/Time Associated Diagnosis Comments HPV THIN PREP Routine 02/09/2023 7:51 AM AUTOMATION AND CONTROL ENGINEER SCAN-MAMMOGRAPHY REPORT 10/18/2020 12:00 AM CDT from Last 3 Months or Most Recently Relevant to Health Maintenance Results * HPV HIGH RISK (02/09/2023 7:51 AM AUTOMATION AND CONTROL ENGINEER) TYPE 16 Negative Negative 02/11/2023 2:27 PM AUTOMATION AND CONTROL ENGINEER [facility] TYPE 18 Negative Negative 02/11/2023 2:27 PM AUTOMATION AND CONTROL ENGINEER [facility] OTHER HIGH RISK TYPES Negative Negative 02/11/2023 2:27 PM AUTOMATION AND CONTROL ENGINEER [facility] Other (Cervical) 02/09/2023 7:51 AM AUTOMATION AND CONTROL ENGINEER 02/10/2023 9:55 AM AUTOMATION AND CONTROL ENGINEER Narrative [facility] - 02/11/2023 2:27 PM AUTOMATION AND CONTROL ENGINEER HPV types 16, 18, 31, 33, 35, 39, 45, 51, 52, 56, 58, 59, 66 and 68 DNA were undetectable or below the pre-set threshold. Methodology: Mely Yvette 4800 HPV Test Nanette Vargas MD MICROBIOLOGY [facility] [address] [place] [address], * SCAN-MAMMOGRAPHY REPORT (10/18/2020 12:00 AM CDT) Anatomical Region Laterality Modality Other Scanner OTHER from Last 3 Months or Most Recently Relevant to Health Maintenance Advance Directives * Full Code (Latest Code Status on File) Date Activated Date Inactivated Comments 01/18/2009 4:09 PM 01/19/2009 7:01 PM * Full Code Date Activated Date Inactivated Comments 01/18/2009 7:49 AM 01/18/2009 4:09 PM * Full Code Date Activated Date Inactivated Comments 01/17/2009 10:11 PM 01/18/2009 7:49 AM Care Teams Medical Physiologist Relationship Specialty [place] [address] [place] [address] PCP - General Family Practice 10/23/20
--- NOTE | 2023-08-31 13:00 | CRLHL7_ITS ---
For Patients: As a result of the Century Cures Act, medical imaging exams and procedure reports are released immediately into your electronic medical record. You may view this report before your referring provider. If you have questions, please contact your health care provider. INDICATION: Six month follow-up enlarged right groin lymph node. History of right thigh melanoma. TECHNIQUE: Focused ultrasound right inguinal soft tissues. Grayscale and color Doppler images. COMPARISON: 03/08/2023. FINDINGS: Several normal lymph nodes imaged in the right groin. All have normal fatty cait and thin cortices. Largest measures 1.4 x 0.4 x 0.9 cm, normal. IMPRESSION: No inguinal adenopathy. No significant change. Dictated by Dav Vieira MD @ 09/01/2023 2:03:00 PM (Electronically Signed)
== END 2023-08-31 12:46 | disposition home or self-care (01) ==
LOC: US 12:46
PROVIDERS: PCP Family Medicine; Visit Provider Surgery
DX: R59.0 Localized enlarged lymph nodes (principal)
CPT/HCPCS: 76882

== ENCOUNTER 2023-12-02 10:15 | Outpatient (CLI) | payer OTHER, SELFPAY ==
--- OUTSIDE RECORDS SUMMARY | 2023-12-02 10:17 | XMS_ITS | Clinical Summary ---
Author Organization [facility] Address [place], [place] [address] Care Team Providers Care Recording Clerk Name Role Phone Lang Mohamud MD Primary Care Provider [phone] Allergies No known active allergies Medications Medication Sig Dispensed Refills Start Date End Date Status labetalol (TRANDATE) 200 mg tablet take 1 tablet (200 mg) by oral route 2 times per day Active Hdftbmdf-Mr-Prw-Fe-FA ( VITAMIN) Tab take 1 tablet by [...] cramping as needed 0 0 01/19/2009 Active Bajiwirv-Pg-Jcy-Fe-FA Tab Take 1 tablet by mouth each [...] Comments Blood Pressure 129/84 01/19/2009 3:45 PM SULFONATOR OPERATOR Pulse 67 01/19/2009 3:45 PM SULFONATOR OPERATOR Temperature 36.7 ??C (98 ??F) 01/19/2009 3:45 PM SULFONATOR OPERATOR Respiratory Rate 18 01/19/2009 3:45 PM SULFONATOR OPERATOR Oxygen Saturation 94% 01/18/2009 2:50 PM SULFONATOR OPERATOR Inhaled Oxygen Concentration - - Weight 84.8 kg (187 lb) 01/17/2009 10:15 PM SULFONATOR OPERATOR Height 174 cm (5' 8.5) 01/17/2009 10:15 PM SULFONATOR OPERATOR Body Mass Index 28.02 01/17/2009 10:15 PM SULFONATOR OPERATOR Plan of Treatment Health Maintenance Due Date [...] 21, 07/17/2019 COVID-19 vaccine series ( season) 2023 06/03/2021, 11/06/2020 Influenza for age 50-64 10/10/2023 Pap test for age 21-65 02/09/2026 , 02/09/2023 RSV vaccine for adults or (1 - 1-dose 75+ series) 09/08/2043 Pneumococcal series for age 6-64 Aged Out No longer eligible b ased on patient's age to complete this topic Procedures Procedure Name Priority Date/Time Associated Diagnosis Comments HPV HIGH RISK Routine 02/09/2023 7:51 AM SULFONATOR OPERATOR SCAN-MAMMOGRAPHY REPORT 10/18/2020 12:00 AM CDT from Last 3 Months or Most Recently Relevant to Health Maintenance Results * HPV HIGH RISK (02/09/2023 7:51 AM SULFONATOR OPERATOR) TYPE 16 Negative Negative 02/11/2023 2:27 PM SULFONATOR OPERATOR [facility] TYPE 18 Negative Negative 02/11/2023 2:27 PM SULFONATOR OPERATOR [facility] OTHER HIGH RISK TYPES Negative Negative 02/11/2023 2:27 PM SULFONATOR OPERATOR [facility] Other (Cervical) 02/09/2023 7:51 AM SULFONATOR OPERATOR 02/10/2023 9:55 AM SULFONATOR OPERATOR Narrative [facility] - 02/11/2023 2:27 PM SULFONATOR OPERATOR HPV types 16, 18, 31, 33, 35, 39, 45, 51, 52, 56, 58, 59, 66 and 68 DNA were undetectable or below the pre-set threshold. Methodology: Mely Yvette 4800 HPV Test Nanette Vargas MD MICROBIOLOGY [facility] [address] [place] [id number], * SCAN-MAMMOGRAPHY REPORT (10/18/2020 12:00 AM CDT) [...] 10:11 PM 01/18/2009 7:49 AM Care Teams Recording Clerk Relationship Specialty Start [place] [address] [place] [address] PCP - General Family Practice 10/23/20
--- OUTSIDE RECORDS SUMMARY | 2023-12-02 10:17 | XMS_ITS | Clinical Summary ---
[facility] Address [address] [place] [address] Care Team Providers Care Marine Biologist Name Role Phone Lang Mohamud MD Primary Care Provider [phone] Source Comments You are receiving this document as you are listed as the primary care provider,follow-up provider, or the patient has been referred to you for consultation.This is in compliance with the Medicare and[facility] Hospital[facility] EHR Incentive Program,which states Providers who transition their patient to another setting of careor provider of care or refers their patient to another provider of care shouldprovide summary care record for each transition of care or referral. [facility] Allergies No known active allergies Medications Medication [...] Diagnosed Date Adenomatous polyp of colon 11/23/2018 Overview (11/23/2018): Colonoscopy completed 11/2018. Repeat in 5 years (11/2023). FH: abdominal aortic aneurysm 03/18/2018 Overview (03/18/2018): Follow up with US. 2016 last check, q5 years. 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 Essential tremor 04/07/2010 Overview (09/30/2016): Essential and other specified forms of tremor (HRC) Essential hypertension 07/15/2002 Overview (09/30/2016): Hypertension Migraine 07/15/2002 Overview (09/30/2016): Migraine Without Aura Resolved Problems Problem Noted Date Diagnosed Date Resolved Date Hypertrophy of breast 09/27/20062012 Overview (09/30/2016): Macromastia Encounters Date Type Department Care Team Description 09/02/2023 10:00 AM CDT Office Visit [facility] [address] [place], [place] [address] Connie Mendez MD Sun-damaged skin (Primary Dx); Personal history of malignant melanoma of skin; History of dysplastic nevus; Solar lentigo; Julio angioma; Multiple melanocytic nevi; Seborrheic keratosis; Family history of malignant melanoma; Benign skin growth; Neoplasm of skin (HRC) from Last 3 Months Immunizations Name Administration Dates Next Due Flu Vac Preserv Free (3+yrs) 11/15/2019, 11/10/2017,11/13/2011, 011,10/31/2009,11/12/2008,12/24/2007,01/2007,11/29/2005 Flublok (RIV4) 11/09/2018 Fluzone Qiv Multidose Vial 0 .25 (6-35 Mos) 11/06/2020 H1n1 Miv Sanofi 3+ Yr (Injected) 12/10/2008 HepA Adult (19+ yrs) 07/06/2012,12/25/2011 Influenza (Fluzone ID) 11/25/2016 Influenza IIV4 (Quadrivalent ) 0.5mL (06591) 11/11/2015,01/12/2014,11/03/2012 Influenza LAIV (Nasal, 2-49 yrs) 11/14/2014 [...] Care Team (Late st Contact Info) Description 12/08/2023 10:30 AM CDT Appointment [facility] [address] [place] [address] [place] [address] [place] [address] 02/22/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 Appointment [facility] [address] [place] [address] [place] [address] [place] [address] [phone] 06/07/2024 10:30 AM CDT Appointment [facility] [address] [place] [address] Connie Mendez MD [address] [place] [address] [phone] Health Maintenance Due Date Last Done Comments [...] on patient's age to complete this topic Infant RSV Aged Out No longer eligi ble based on patient's age to complete this topic MCV4 Aged Out No longer eligi ble based on patient's age to complete this topic Pneumococcal Aged Out No longer eligi ble based on patient's age to complete this topic Procedures Procedure Name Priority Date/Time Associated Diagnosis Comments EPIDERMAL / DERMAL SHAVING Routine 09/02/2023 10:35 AM CDT Neoplasm of skin (HRC) SURGICAL PATHOLOGY, DERMATOLOGY Routine 09/02/2023 10:35 AM CDT Neoplasm of skin (HRC) MAMMOGRAM SC 01/29/2023 LIPID PANEL & DIRECT LDL (IF NEEDED) Routine 08/23/2020 2:16 PM CDT Well adult exam ENDOSCOPY, COLON, SCREENING/DIAGNOSTIC Routine 11/17/2018 1:26 PM CDT Screening for [...] Recently Relevant to Health Maintenance Results * Shave removal (No CPT) (09/02/2023 10:35 AM CDT) Narrative EXTERNAL RESULTS - 09/02/2023 10:35 AM CDT Lesion diameter (cm): ??0.4 Informed consent: discussed and consent obtained ?? Timeout: patient name, date of , surgical site, and procedure verified ?? Procedure prep: ??Patient was prepped and draped in usual sterile fashion Prep type: ??Isopropyl alcohol Anesthesia: the lesion was anesthetized in a standard fashion ?? Anesthetic: ??1% lidocaine w/ epinephrine 1-100,000 local infiltration Instrument used: flexible razor blade ?? Hemostasis achieved with: aluminum chloride and electrodesiccation ?? Outcome: patient tolerated procedure well ?? Post-procedure details: wound care instructions given ?? Additional details: ??Site cleansed with rubbing alcohol prior to anesthetic. Post procedure, plain vaseline and bandage applied. Connie Mendez MD DERM PROCEDURE ORDER MARIELA EXTERNAL RESULTS * Surgical Path, Dermatology (09/02/2023 10:35 AM CDT) Case Report Surgical Pathology Report ? Case: [id number] ? Authorizing Provider: ??Connie Mendez MD ? Collected: ? 09/02/2023 1035 ? Ordering Location: ? [facility] ? Received: ?09/03/2023 0641 ? Pathologist: ? Allan christianson, Kwaku S, ? MD ? Specimen: ?Skin, Right Thigh - Anterior medial ? 09/08/2023 12:06 PM CDT LADIES LOCKER ROOM ATTENDANT 3800 DERMATOLOGY FINAL DIAGNOSIS A. Skin, Right Thigh - Anterior medial, shave: - Benign compound melanocytic nevus, free of sampled biopsy margins. 09/08/2023 12:06 PM CDT LADIES LOCKER ROOM ATTENDANT 3800 DERMATOLOGY Clinical Information Clinical Impression: DN r/o MM 09/08/2023 12:06 PM CDT LADIES LOCKER ROOM ATTENDANT 3800 DERMATOLOGY Microscopic Description Microscopic examination is performed. 09/08/2023 12:06 PM CDT LADIES LOCKER ROOM ATTENDANT 3800 DERMATOLOGY Technical Information A portion of the technical staining was performed at [facility], [address] [place] [address]. 09/08/2023 12:06 PM CDT LADIES LOCKER ROOM ATTENDANT 3800 DERMATOLOGY Gross Description A: Received in formalin, labeled with the patient's name and Skin, Right Thigh - Anterior medial is a 5 x 5 x 1 mm shave of skin. The specimen is marked with green ink, bisected, and submitted entirely in one cassette. DS 09/08/2023 12:06 PM CDT LADIES LOCKER ROOM ATTENDANT 3800 DERMATOLOGY Embedded Images 09/08/2023 12:06 PM CDT LADIES LOCKER ROOM ATTENDANT 3800 DERMATOLOGY Skin (Skin) 09/02/2023 10:3 5 AM CDT 09/03/2023 6:41 AM CDT Comment:Clinical Impression: DN r/o MM Connie Mendez MD LAB PATHOLOGY [facility] 3800 DERMATOLOGY [address] * MAMMOGRAM SC (01/29/2023) Interface Provider DUMMY/OTHER/AR * (ABNORMAL) Lipid Panel - LDLD If Trig High (08/23/2020 2:16 PM CDT) Cholesterol 216(H) 0 - 199 mg/dL 08/23/2020 8:58 PM CDT [facility] Triglyceride 136 <=149 mg/dL 08/23/2020 8:58 PM CDT [facility] HDL Cholesterol 52 >=40 mg/dL 8:58 PM CDT [facility] LDL, Calculated 137(H) <130 mg/dL 8:58 PM CDT [facility] Non HDL Chol, Calculated 164(H) <=159 mg/dL 08/23/2020 8:58 PM T [facility] Cholesterol/HDL Ratio 4.2 08/23/2020 8:58 PM T [facility] Hours Fasting 12 08/23/2020 8:58 PM CDT [facility] Blood Venipuncture / Unknown 08/23/2020 2:16 PM CDT 08/23/2020 2:16 PM CDT Elvin Haque PA-C LAB_1 Performing Organization Address [facility]/ZIP Co de Phone Number [facility] [address] [place] [address], [facility] [phone] [facility] [address] [place] [address], [facility] [phone] * Colonoscopy (11/17/2018 1:26 PM CDT) Anatomical Region Laterality Modality Other 11/17/2018 1:26 PM CDT Narrative 11/17/2018 1:26 PM CDT 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 --- Professional --- ? 70151, Colonoscopy, flexible; with ? biopsy, single or multiple ? 52756, Moderate sedation; each ? additional 15 minutes [...] (additional time may ? be reported with 55275, as ? appropriate) Diagnosis Code(s): ?? --- Professional --- ? Z12.11, Encounter for screening for ? malignant neoplasm of colon ? D12.5, Benign neoplasm of sigmoid ? colon ? K62.89, Other specified diseases of ? anus and rectum CPT copyright 2018 [employer]. All rights reserved. The codes documented in this report are preliminary and upon tobacco roller review may be revised to meet current [...] the patient. Procedure Code(s): --- Professional --- 07080, Colonoscopy, flexible; with biopsy, single or multiple 93580, Moderate sedation; each additional 15 minutes intraservice time G0500, Moderate sedation services provided by the same physician or other qualified health child care leader performing a gastrointestinal endoscopic service that sedation supports, requiring the presence of an independent trained observer to assist in the monitoring of the patient's level of consciousness and physiological status; initial 15 minutes of intra-service time; patient age 5 years or older (additional time may be reported with 63180, as appropriate) Diagnosis Code(s): --- Professional --- Z12.11, Encounter for screening for malignant neoplasm of colon D12.5, Benign neoplasm of sigmoid colon K62.89, Other specified diseases of anus and rectum CPT copyright 2018 [employer]. All rights reserved. The codes documented in this report are preliminary and upon tobacco roller review may be revised to meet current compliance requirements. Jona Alegria MD 11/17/2018 2:11:41 PM Number of Addenda: 0 Note Initiated On: 11/17/2018 1:26 PM Endoscopy Report Lang Mohamud MD ET GI PROCEDURE ELICIA ENGLISH * HIV-1 P24 AND HIV-1/HIV-2 ANTIBODIES (08/02/2015 5:03 PM CDT) HIV-1 p24 Ag and HIV-1/HIV-2 Ab Nonreactive Non-React jacqui HP CONVERSION 08/02/2015 5:03 PM CDT 08/02/2015 9:59 PM CDT Narrative HP CONVERSION - 08/02/2015 10:42 [place] [address] CLIA number [id number] Lulú Mitchell PA-C LAB_1 Performing Organization Address [facility] Co de Phone Number HP CONVERSION * Hepatitis C Antibody, with Reflex (08/02/2015 5:03 PM CDT) Hepatitis C Antibody Nonreactive Non-React jacqui HP CONVERSION 08/02/2015 5:03 PM CDT 08/02/2015 9:59 PM CDT Narrative HP CONVERSION - 08/02/2015 10:42 PM CDT Performed at [address] [address] CLIA number [id number] Lulú Mitchell PA-C LAB_1 Performing Organization Address City/[facility]/ZIP Co de Phone Number HP CONVERSION * Pap Smear (08/02/2015 4:59 PM CDT) 08/02/2015 4:59 PM CDT Narrative HP CONVERSION - 08/08/2015 4:24 PM CDT FINAL GYNECOLOGICAL CYTOLOGY REPORT Pathology #: [id number] ?Date Obtained: 08/02/2015 ? Date Received: 08/05/2015 [...] and false-negative reports may occur. Performed at [facility], [address] [place] [id number] Transcriptions 03/18/2016 4:37 PM CSTNotes Recorded by [...] RN on behalf ofDr. Silvia Avitia, Medical DirectorSt. Cloud Va Health [facility] Cervical Cancer Screening and Management Lulú Mitchell PA-C LAB_1 HP CONVERSION from Last 3 Months or Most Recently Relevant to Health Maintenance Care Teams Marine Biologist Relationship Specialty [place] [address] [place] [address] PCP - General Family Practice 08/21/20
--- OUTSIDE RECORDS SUMMARY | 2023-12-02 10:17 | XMS_ITS | Encounter Summary ---
Author Organization [facility] Address [address] [place] [address] Care Team Providers Care Care Provider Name Role Phone Lang Mohamud MD Primary Care Provider [phone] Reason for Visit * Reason Comments Skin Exam Full Body Skin Cance r Screening Concerns: Denies anything tender, bleeding, rapidly growing or nonhealing at this time Phx:mm,dn Encounter Details Date Type Department Care Team (Late st Contact Info) Description 09/02/2023 10:00 AM CDT Office Visit [facility] [address] [place] [address] Connie Mendez MD [address] [place] [address] [phone] Sun-damaged skin (Primary Dx); Personal history of malignant melanoma of skin; History of dysplastic nevus; Solar lentigo; Julio angioma; Multiple melanocytic nevi; Seborrheic keratosis; Family history of malignant melanoma; Benign skin growth; Neoplasm of skin (HRC) Social History Tobacco Use Types Packs/Day Years [...] on file documented as of this encounter Progress Notes * Connie Mendez MD - 09/02/2023 10:00 AM CDT Images from the original note were not included. DERMATOLOGY OFFICE VISIT Last visit: 05/2023 Dermatologic History: History of melanoma - spitzoid [...] left lower leg posterior, Breslow depth 0.5 mm, excision 03/08/2023 at [facility] with Dr. Salcido History of dysplastic nevi - moderate atypia, left breast, shave removal 02/16/23 - Severely atypical, right lower posterior distal leg, bx 02/16/23 Blue nevus colliding with small junctional lentiginous nevus, right posterior shoulder, shave removal 02/16/23 Chief Complaint Patient presents with Skin Exam Full Body Skin Cancer Screening Concerns: Denies anything tender, bleeding, rapidly growing or nonhealing at this time Phx:mm,dn History of Present Illness: Ashlyn Wu is a 52 y.o. female who presents for a full body skin exam today. I last saw her in May, Today: Denies any spots of concern She is otherwise feeling well with no fevers, chills, night sweats or unintentional weight loss. Past Medical History, Family History: Reviewed and updated in [facility] Social History: Lives in [place], two teenage children, one age 18. Medications: The patient has a current medication list which includes the following prescription(s): drysol, atenolol, clobetasol, lisinopril, and rizatriptan. Allergies: The patient has No [...] below. Derm Exam, Assessment and Plan: 1. Sun-damaged skin - Reviewed risk factors for melanoma and nonmelanoma skin cancers - ABCDEs reviewed in clinic and in AVS or bookmark handout - Recommended SPF 30+ sunscreen every day and sun protective clothing Suggested importance of at home screening especially on the lower legs, suggested a hand held mirror to assist with screening process 2. Personal history of malignant melanoma of skin - well-healed scar(s) at the site(s) of previous melanoma with no evidence of any residual or recurrent lesion - no lymphadenopathy - reviewed the importance of protecting their skin from the sun - reviewed how to monitor the skin for concerning lesions - if anything recurs at these sites, reviewed the importance of returning to clinic for re-evaluation - reviewed the importance of at least annual skin checks with dermatology 3. History of dysplastic nevus - well-healed scar with no evidence of pigment recurrence Benign nature dicussed, reassurance provided 4. Solar lentigo Silva macules in sun-exposed areas. No clinical outliers noted Reassurance provided 5. Julio angioma - bright red 1-3 mm dome-shaped papules with red lobules under dermoscopy present on trunk Benign, reassured. 6. Multiple melanocytic nevi - Scattered 3-5 mm uniformly colored, bland, symmetrical brown macules and papules on trunk, arms, and legs Benign, reassured. 7. Seborrheic keratosis Silva to brown, stuck-on, waxy papule(s) Benign, reassured. 8. Family history of malignant melanoma Family history of melanoma in brother (who also has a history of renal cell carcinoma) Reports that genetic testing has previously been discussed with her in her brother and she has deferred. Defers again today. 9. Suspected traumatized blue nevus Right Shoulder - Anterior No concerns at this time but note worthy locations or features to monitor. R anterior shoulder -3 x 2mm coleman brown macule, Suspect traumatized blue nevus, patient reports picking 10. Neoplasm of skin (HRC) Right Thigh - Anterior medial 4 x3 mm dark brown papule, central white veil over erythema Shave removal (No CPT) Lesion diameter (cm): 0.4 Informed consent: discussed and consent obtained Timeout: patient name, date of , surgical site, and procedure verified Procedure prep: Patient was prepped and draped in usual sterile fashion Prep type: Isopropyl alcohol Anesthesia: the lesion was anesthetized in a standard fashion Anesthetic: 1% lidocaine w/ epinephrine 1-100,000 local infiltration Instrument used: flexible razor blade Hemostasis achieved with: aluminum chloride and electrodesiccation Outcome: patient tolerated procedure well Post-procedure details: wound care instructions given Additional details: Site cleansed with rubbing alcohol prior to anesthetic. Post procedure, plain vaseline and bandage applied. Specimen 1 - Surgical Path, Dermatology Clinical Impression: DN r/o MM Follow up: Return to clinic for previous scheduled appointments , sooner for new concerns. 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 Appointment [facility] [address] [place] [address] [place] [address] [place] [address] 06/07/2024 10:30 AM CDT Appointment [facility] [address] [place] [address] Connie Mendez MD [address] [place] [address] documented as of this encounter Procedures Procedure Name Priority Date/Time Associated Diagnosis Comments EPIDERMAL / DERMAL SHAVING Routine 09/02/2023 10:35 AM CDT Neoplasm of skin (HRC) SURGICAL PATHOLOGY, DERMATOLOGY Routine 09/02/2023 10:35 AM CDT Neoplasm of skin (HRC) documented in this encounter Results * Shave removal (No CPT) (09/02/2023 [...] DERM PROCEDURE ORDER MARIELA Performing Organization Address City/State/[facility] Co de Phone Number EXTERNAL RESULTS * Surgical Path, Dermatology (09/02/2023 10:35 AM CDT) Case Report Surgical Pathology Report ? Case: [id number] ? Authorizing Provider: ??Connie Mendez MD ? Collected: ? 09/02/2023 1035 ? Ordering Location: ? [facility] ? Received: ?09/03/2023 0641 ? Pathologist: ? Allan christianson, Kwaku S, ? MD ? Specimen: ?Skin, Right Thigh - Anterior medial ? 09/08/2023 12:06 PM CDT SPEECH LANGUAGE PATHOLOGIST PRN 3800 DERMATOLOGY FINAL DIAGNOSIS A. Skin, Right Thigh - Anterior medial, shave: - Benign compound melanocytic nevus, free of sampled biopsy margins. 09/08/2023 12:06 PM CDT SPEECH LANGUAGE PATHOLOGIST PRN 3800 DERMATOLOGY Clinical Information Clinical Impression: DN r/o MM 09/08/2023 12:06 PM CDT SPEECH LANGUAGE PATHOLOGIST PRN 3800 DERMATOLOGY Microscopic Description Microscopic examination is performed. 09/08/2023 12:06 PM CDT SPEECH LANGUAGE PATHOLOGIST PRN 3800 DERMATOLOGY Technical Information A portion of the technical staining was performed at [facility], [address] [place] [address]. 09/08/2023 12:06 PM CDT SPEECH LANGUAGE PATHOLOGIST PRN 3800 DERMATOLOGY Gross Description A: Received in formalin, labeled with the patient's name and Skin, Right Thigh - Anterior medial is a 5 x 5 x 1 mm shave of skin. The specimen is marked with green ink, bisected, and submitted entirely in one cassette. DS 09/08/2023 12:06 PM CDT SPEECH LANGUAGE PATHOLOGIST PRN 3800 DERMATOLOGY Embedded Images 09/08/2023 12:06 PM CDT SPEECH LANGUAGE PATHOLOGIST PRN 3800 DERMATOLOGY Skin (Skin) 09/02/2023 10:3 5 AM CDT 09/03/2023 6:41 AM CDT Comment:Clinical Impression: DN r/o MM Connie Mendez MD LAB PATHOLOGY [facility] [address] D[address] documented in this encounter Visit Diagnoses Diagnosis Sun-damaged skin- Primary Other chronic dermatitis due to solar radiation Personal history of malignant melanoma of skin History of dysplastic nevus Personal history of diseases of skin and subcutaneous tissue Solar lentigo Other dyschromia Julio angioma Nevus, non-neoplastic Multiple melanocytic nevi Seborrheic keratosis Other seborrheic keratosis Family history of malignant melanoma Family history of other specified malignant neoplasm Benign skin growth Unspecified disorder of skin and subcutaneous tissue Neoplasm of skin (HRC) Neoplasm of unspecified nature of bone, soft tissue, and skin documented in this encounter Care Teams Care Provider Relationship Specialty [place] [address] [place] [address] PCP - General Family Practice 08/21/20 documented as of this encounter
--- NOTE | 2023-12-02 11:33 | W.ANESCHARGE ---
Anesthesia Charges Start Date/Time Anesthesia Start Date: 12/02/23 Anesthesia Start Time: 10:58 Stop Date/Time Anesthesia Stop Date: 12/02/23 Anesthesia Stop Time: 11:32
--- NOTE | 2023-12-02 12:06 | W.ANESCHARGE ---
Anesthesia Charges Start Date/Time Anesthesia Start Date: 12/02/23 Anesthesia Start Time: 10:58 Stop Date/Time Anesthesia Stop Date: 12/02/23 Anesthesia Stop Time: 11:32
== END 2023-12-02 10:16 | disposition home or self-care (01) ==
LOC: OP CLINIC 10:16
PROVIDERS: PCP Family Medicine; Visit Provider Surgery
DX: Z12.11 Encounter for screening for malignant neoplasm of colon (principal); D12.5 Benign neoplasm of sigmoid colon; Z86.0100 Personal history of colon polyps, unspecified
CPT/HCPCS: 00811; 45385; 88305; J2704

== ENCOUNTER 2024-03-22 09:11 | Outpatient (CLI) | payer OTHER, SELFPAY ==
--- NOTE | 2024-03-22 09:15 | CRLHL7_ITS ---
For Patients: As a result of the Cures Act, medical imaging exams and procedure reports are released immediately into your electronic medical record. You may view this report before your referring provider. If you have questions, please contact your health care provider. BILATERAL SCREENING MAMMOGRAM WITH COMPUTER-AIDED DETECTION AND TOMOSYNTHESIS TECHNIQUE: CC and MLO views were obtained. These mammographic images have been obtained using full-field digital technique. These mammographic images were interpreted with the benefit of computer-aided detection. Breast Tomosynthesis was used in this interpretation. COMPARISON FILM: 01/29/23, 11/26/21, 10/18/20. FINDINGS: There are scattered areas of fibroglandular density IMPRESSION: There is no radiographic evidence for malignancy. ASSESSMENT: BI-RADS Category 1: Negative RECOMMENDATION: Routine screening mammogram in 1 year. A lay language report of this examination will be provided to the patient. Lang Olivo M.D. Diagnostic Radiologist [email or web address] Transcribed: 2:12 p.gisel nelson/Dictated by: Lang Oliov MD @ 03/24/2024 10:29:00 AM (Electronically Signed)
== END 2024-03-22 09:12 | disposition home or self-care (01) ==
LOC: MAMMO 09:12
PROVIDERS: PCP Family Medicine; Visit Provider Family Medicine
DX: Z12.31 Encounter for screening mammogram for malignant neoplasm of breast (principal)
CPT/HCPCS: 77063; 77067

== ENCOUNTER 2024-03-23 13:25 | Outpatient (CLI) | payer OTHER, SELFPAY | END 2024-03-23 13:26 | disposition home or self-care (01) | PROVIDERS: PCP Family Medicine; Visit Provider Family Medicine | DX: I10 Essential (primary) hypertension (principal); Z13.220 Encounter for screening for lipoid disorders | CPT/HCPCS: 80053; 80061; 82043; 82570 ==

== ENCOUNTER 2024-04-10 11:04 | Outpatient (CLI) | payer OTHER, SELFPAY | END 2024-04-10 11:05 | disposition home or self-care (01) | PROVIDERS: PCP Family Medicine; Visit Provider Surgery | DX: C77.9 Secondary and unspecified malignant neoplasm of lymph node, unspecified (principal) | CPT/HCPCS: 76882 ==

== ENCOUNTER 2025-01-15 11:04 | Outpatient (CLI) | payer OTHER, SELFPAY ==
--- NOTE | 2025-01-15 11:15 | CRLHL7_ITS ---
For Patients: As a result of the Century Cures Act, medical imaging exams and procedure reports are released immediately into your electronic medical record. You may view this report before your referring provider. If you have questions, please contact your health care provider. Indication: right thigh melanoma, f/u previous lymph nodes Technique: Grayscale and color Doppler ultrasound of the right inguinal soft tissues performed. Comparison: 04/10/2024 Findings: Normal right inguinal lymph nodes are present measuring 1.3 x 0.5 x 0.8 cm and 1.3 x 0.4 x 1.2 cm. No cortical thickening. Normal central fatty cait. Normal internal vascularity. Impression: Normal right inguinal lymph nodes. No suspicious findings. Dictated by Lang Olivo MD @ 01/15/2025 11:54:19 AM (Electronically Signed)
== END 2025-01-15 11:05 | disposition home or self-care (01) ==
LOC: US 11:05
PROVIDERS: PCP Family Medicine; Visit Provider Surgery
DX: C77.9 Secondary and unspecified malignant neoplasm of lymph node, unspecified (principal)
CPT/HCPCS: 76882